=== PATIENT | female | born 1935 | race Caucasian/White ===

== ENCOUNTER 2016-07-06 17:55 | Inpatient (IN) ==
[2016-07-06 18:39] LABS: Basophils % 0.2 %; Hematocrit 40.5 % (35.3-44.9); Hemoglobin 14.2 g/dL (11.5-15.4); Immature Granulocytes % 0.5 % (0-4); Lymphocytes # 0.7 K/mcL (0.6-4.6); Lymphocytes % 4.3 %; Mean Corpuscular HGB Conc 35.1 g/dL (31.6-35.5); Mean Corpuscular Hemoglobin 32.7 pg (28.0-33.3); Mean Corpuscular Volume 93.3 fL (83.0-100.0); Mean Platelet Volume 9.8 fL (9.4-12.4); Monocytes # 1.8 K/mcL (0.0-1.3); Monocytes % 10.8 %; Neutrophils # 14.1 K/mcL (1.6-8.9); Platelet Count 384 K/mcL (140-400); Red Blood Count 4.34 M/mcL (3.82-4.97); Red Cell Distribution Width 12.5 % (11.5-14.5); Segmented Neutrophils % 84.2 %
[2016-07-06 18:47] LABS: Activated Partial Thrombo Time 21.6 Seconds (26.0-36.0)
[2016-07-06 18:55] LABS: Bilirubin,Urine Moderate (Negative); Blood,Urine Moderate (Negative); Clarity,Urine Cloudy (Clear); Color,Urine Yellow (Yellow); Glucose,Urine (UA) Normal (Normal); Ketones,Urine 40 mg/dL (Negative); Leukocyte Esterase,Urine Small (Negative); Nitrite,Urine Negative (Negative); Protein,Urine >=300 mg/dL (Neg-Trace); Specific Gravity,Urine 1.023 (1.010-1.025); Urobilinogen,Urine Normal (Normal)
[2016-07-06 18:55] LABS: Alanine Aminotransferase 12 Units/L (0-55); Albumin 3.6 g/dL (3.5-5.0); Alkaline Phosphatase 65 Units/L (38-126); Aspartate Amino Transferase 19 Units/L (5-34); BUN/Creatinine Ratio 23 (6-26); Bilirubin,Direct 0.3 mg/dL (0.0-0.5); Bilirubin,Indirect 0.5 mg/dL (0.0-1.2); Bilirubin,Total 0.8 mg/dL (0.2-1.2); Blood Urea Nitrogen 19 mg/dL (7-20); Calcium 9.8 mg/dL (8.6-10.8); Carbon Dioxide 27 mEq/L (19-29); Chloride 98 mEq/L (98-109); Globulin 3.7 g/dL (2.4-3.5); Glucose 102 mg/dL (70-99); Osmolality,Calculated 290 (280-300); Potassium 2.9 mEq/L (3.5-4.5); Sodium 139 mEq/L (136-145); Total Protein 7.3 g/dL (6.0-8.3); eGFR For African Americans > 60 (> 60); eGFR For Non-African Americans > 60 (> 60)
[2016-07-06 18:58] LABS: Ethanol < 10 mg/dL (0-10)
[2016-07-06 18:59] LABS: Bacteria,Urine Many per hpf (None-Few); Hyaline Casts,Urine Few per lpf (None-Few); Squamous Epithelial Cell,Urine Moderate per lpf (None-Few); WBC,Urine 50-100 per hpf (0-3)
--- NOTE | 2016-07-06 19:05 | Emergency Department Note ---
START Narrative - START START: I examined this patient and my medical decision-making was reviewed with the COURT OFFICER/PA/Advanced Practice Nurse/Resident Physician. I agree with the documented findings, disposition and treatment plan as described except to the extent set forth below.
--- NOTE | 2016-07-06 19:29 | Emergency Department Note ---
Disposition Clinical Impression: UTI (urinary tract infection) Qualifiers: Urinary tract infection type: acute cystitis Hematuria presence: without hematuria Qualified Code(s): N30.00 - Acute cystitis without hematuria Sepsis Qualifiers: Sepsis type: sepsis due to unspecified organism Qualified Code(s): A41.9 - Sepsis, unspecified organism Disposition: Admitted As Inpatient Condition: Good Time of Disposition: 20:12 General Adult HPI - General Chief complaint: ED Neuro Symptoms/Deficit Stated complaint: "drooling on self, slurred speech" Time Seen by Provider: 07/06/16 18:12 Source: family Limitations: no limitations Nursing Notes Reviewed: Yes Vital Signs Reviewed: Yes - History of Present Illness HPI Narrative: Three-day history of increased weakness today history of not eating as well as drooling and trouble swallowing. Recent admission and a psych unit for medication changes for depression. Pain Scale: 0 - Related Data Home Medications Medication Instructions Recorded Confirmed Elavil 11/26/14 11/26/14 Vitamin B-12 11/26/14 11/26/14 Vitamin C 11/26/14 11/26/14 Vitamin D 11/26/14 11/26/14 Xanax 11/26/14 11/26/14 Tylenol 10/23/15 Previous Rx's Medication Instructions Recorded Lidocaine Jelly 2% 30 ml MM TID PRN #1 jel..ml. 03/06/16 Alprazolam [Xanax 0.5 MG Tablet] 0.5 mg PO TID PRN #15 tablet 04/27/16 Alprazolam [Xanax 0.25 MG Tablet] 0.25 mg PO BID PRN #10 tablet 05/04/16 Ondansetron [Zofran] 8 mg PO Q8HR PRN #10 tablet 05/04/16 Promethazine [Phenergan] 25 mg PO Q8HR PRN #10 tablet 05/04/16 Ciprofloxacin HCl [Cipro] 500 mg PO BID #14 tablet 05/20/16 LORazepam [Ativan] 0.5 mg PO HS #5 tablet 05/23/16 Allergies Allergy/AdvReac Type Severity Reaction Status Date / Time Amoxicillin Allergy Rash Verified 05/03/16 09:00 Sulfa (Sulfonamide Allergy Rash Verified 05/03/16 09:00 Antibiotics) All systems ED: reviewed and negative except as stated. Constitutional: Denies: fever, chills ENT ED: Denies: throat pain, congestion, dysphagia (Patient states no pain on swallowing she just is not swallowing.) Cardiovascular: Denies: chest pain, palpitations Respiratory: Denies: cough, dyspnea, wheezes Gastrointestinal: Denies: abdominal pain, nausea, vomiting, diarrhea Genitourinary: Denies: urgency, dysuria, frequency, hematuria Musculoskeletal: Denies: back pain, neck pain Neurological: Denies: headache, weakness Psychiatric: Reports: depression Past Medical History - Past Medical History Medical history: Reports: dementia Surgical history: Reports: no surgical history Psychiatric history: Reports: anxiety, depression 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 Speaking minimally.) - Head Head exam: atraumatic, normocephalic - Eye Eye exam: Present: normal appearance, PERRL, EOMI. Absent: scleral icterus - ENT ENT exam: normal exam, normal oropharynx, mucous membranes moist - Neck Neck exam: Present: normal inspection, full ROM, trachea midline - Chest Chest inspection: Present: normal inspection, symmetric chest wall rise. Absent : tenderness, rash - Respiratory Respiratory exam: Present: normal lung sounds bilaterally. Absent: respiratory distress - Cardiovascular Cardiovascular exam: Present: regular rate, normal rhythm, normal heart sounds - Abdominal Exam Abdominal exam: Present: soft, Non-Tender, normal bowel sounds, Clements's sign, Rovsing's sign, tenderness at McBurney's Point. Absent: organomegaly - Extremities Exam Extremities exam: Present: normal inspection, full ROM, normal capillary refill. Absent: tenderness, pedal edema - Back Exam Back exam: Present: normal inspection, full ROM. Absent: tenderness - Neurological Exam Neurological exam: Present: alert, oriented X3. Absent: normal gait (Family states patient is not ambulating.) - Psychiatric Psychiatric exam: Present: flat affect - Skin Skin exam: Present: warm, dry, intact, normal color. Absent: rash, cyanosis Course Course Narrative: Female patient with a psych history was released from [facility] last week. She spent 16 days there for depression and had some medication changes. Family states that she returned home and was speaking appropriately and acting appropriately. She was eating and drinking well and ambulating throughout the house. They state over the past 3 days she has become almost nonverbal and has been drooling significantly. She is very weak and has not been eating for the past 2 days. Family expresses concern. They are concerned that she may have an ulcer in her mouth as she is drooling frugally. However patient states that it does not hurt to swallow she just is not swallowing. Patient is verbal and alert and oriented 3 however very quiet. She only answers certain questions. She appears distant while she is sitting there. Her lung sounds are clear her heart tones are normal and her abdomen is soft and nontender on exam. Patient is alert and oriented her affect is off. CT of patient's head was read as normal and chest x-ray was normal. Patient does have a UTI. We will begin treatment for this. She also has hypokalemia. We will give her potassium to treat this. She is having trouble with swallowing. We will order this IV. She will need to be further evaluated for swallowing disorders on admission. We will admit patient for her first criteria of meeting sepsis and a UTI as well as failure to thrive.. We will give patient a small fluid bolus. We will withhold the full 30 mL due to patient's fragility. - Consultations Consultation #1: Dr Reece accepted Pt in stable condition. Time: 20:07 Vital Signs Temperature 97.3 F L 07/06/16 17:59 Pulse Rate 109 07/06/16 17:59 Respiratory Rate 16 07/06/16 17:59 Blood Pressure 151/78 07/06/16 17:59 O2 Sat by Pulse Oximetry 94 07/06/16 17:59 Temperature 97.3 F L 07/06/16 17:59 Pulse Rate 109 07/06/16 17:59 Respiratory Rate 16 07/06/16 17:59 Blood Pressure 151/78 07/06/16 17:59 O2 Sat by Pulse Oximetry 94 07/06/16 17:59 Oxygen Delivery Oxygen Delivery Room Air Medical Decision Making - Medical Records Medical records reviewed: Yes I reviewed the patient's medical records. - Lab Data Lab results reviewed: Yes I reviewed the patient's lab results. Result diagrams: 07/06/16 18:26 07/06/16 18:26 Lab Results 07/06/16 07/06/16 07/06/16 Range/Units 18:26 18:26 18:26 WBC 16.7 H (4.3-11.1) K/mcL RBC 4.34 (3.82-4.97) M/mcL Hgb 14.2 (11.5-15.4) g/dL Hct 40.5 (35.3-44.9) % MCV 93.3 (83.0-100.0) fL MCH 32.7 (28.0-33.3) pg MCHC 35.1 (31.6-35.5) g/dL RDW 12.5 (11.5-14.5) % Plt Count 384 (140-400) K/mcL MPV 9.8 (9.4-12.4) fL Immature Gran % 0.5 (0-4) % Seg Neutrophils % 84.2 % Lymphocytes % 4.3 % Monocytes % 10.8 % Eosinophils % 0.0 % Basophils % 0.2 % Neutrophils # 14.1 H (1.6-8.9) K/mcL Lymphocytes # 0.7 (0.6-4.6) K/mcL Monocytes # 1.8 H (0.0-1.3) K/mcL Eosinophils # 0.0 (0.0-0.6) K/mcL Basophils # 0.0 (0.0-0.2) K/mcL PT 11.0 (9.4-12.1) Seconds INR 1.0 APTT 21.6 L (26.0-36.0) Seconds Sodium 139 (136-145) mEq/L Potassium 2.9 L (3.5-4.5) mEq/L Chloride 98 (98-109) mEq/L Carbon Dioxide 27 (19-29) mEq/L BUN 19 (7-20) mg/dL Creatinine 0.82 (0.57-1.11) mg/dL Est GFR ( Amer) > 60 (> 60) Est GFR (Non-Af Amer) > 60 (> 60) BUN/Creatinine Ratio 23 (6-26) Glucose 102 H (70-99) mg/dL Calculated Osmolality 290 (280-300) Calcium 9.8 (8.6-10.8) mg/dL Total Bilirubin 0.8 (0.2-1.2) mg/dL Direct Bilirubin 0.3 (0.0-0.5) mg/dL Indirect Bilirubin 0.5 (0.0-1.2) mg/dL AST 19 (5-34) Units/L ALT 12 (0-55) Units/L Alkaline Phosphatase 65 (38-126) Units/L Serum Total Protein 7.3 (6.0-8.3) g/dL Albumin 3.6 (3.5-5.0) g/dL Globulin 3.7 H (2.4-3.5) g/dL Albumin/Globulin Ratio 1.0 L (1.1-2.2) Urine Color (Yellow) Urine Clarity (Clear) Urine pH (5.0-8.0) pH Units Ur Specific [place] (1.010-1.025) Urine Protein (Neg-Trace) mg/dL Urine Glucose (UA) (Normal) mg/dL Urine Ketones (Negative) mg/dL Urine Blood (Negative) Urine Nitrite (Negative) Urine Bilirubin (Negative) Urine Urobilinogen (Normal) mg/dL Ur Leukocyte Esterase (Negative) Urine Microscopic RBC (0-3) per hpf Urine Microscopic WBC (0-3) per hpf Ur Squamous Epith Cells (None-Few) per lpf Urine Bacteria (None-Few) per hpf Hyaline Casts (None-Few) per lpf Ur Culture Indicated? (NO) Ethyl Alcohol < 10 (0-10) mg/dL 07/06/16 Range/Units 18:43 WBC (4.3-11.1) K/mcL RBC (3.82-4.97) M/mcL Hgb (11.5-15.4) g/dL Hct (35.3-44.9) % MCV (83.0-100.0) fL MCH (28.0-33.3) pg MCHC (31.6-35.5) g/dL RDW (11.5-14.5) % Plt Count (140-400) K/mcL MPV (9.4-12.4) fL Immature Gran % (0-4) % Seg Neutrophils % % Lymphocytes % % Monocytes % % Eosinophils % % Basophils % % Neutrophils # (1.6-8.9) K/mcL Lymphocytes # (0.6-4.6) K/mcL Monocytes # (0.0-1.3) K/mcL Eosinophils # (0.0-0.6) K/mcL Basophils # (0.0-0.2) K/mcL PT (9.4-12.1) Seconds INR APTT (26.0-36.0) Seconds Sodium (136-145) mEq/L Potassium (3.5-4.5) mEq/L Chloride (98-109) mEq/L Carbon Dioxide (19-29) mEq/L BUN (7-20) mg/dL Creatinine (0.57-1.11) mg/dL Est GFR ( Amer) (> 60) Est GFR (Non-Af Amer) (> 60) BUN/Creatinine Ratio (6-26) Glucose (70-99) mg/dL Calculated Osmolality (280-300) Calcium (8.6-10.8) mg/dL Total Bilirubin (0.2-1.2) mg/dL Direct Bilirubin (0.0-0.5) mg/dL Indirect Bilirubin (0.0-1.2) mg/dL AST (5-34) Units/L ALT (0-55) Units/L Alkaline Phosphatase (38-126) Units/L Serum Total Protein (6.0-8.3) g/dL Albumin (3.5-5.0) g/dL Globulin (2.4-3.5) g/dL Albumin/Globulin Ratio (1.1-2.2) Urine Color Yellow (Yellow) Urine Clarity Cloudy A (Clear) Urine pH 6.0 (5.0-8.0) pH Units Ur Specific [place] 1.023 (1.010-1.025) Urine Protein >=300 H (Neg-Trace) mg/dL Urine Glucose (UA) Normal (Normal) mg/dL Urine Ketones 40 H (Negative) mg/dL Urine Blood Moderate H (Negative) Urine Nitrite Negative (Negative) Urine Bilirubin Moderate H (Negative) Urine Urobilinogen Normal (Normal) mg/dL Ur Leukocyte Esterase Small H (Negative) Urine Microscopic RBC 5-15 H (0-3) per hpf Urine Microscopic WBC 50-100 H (0-3) per hpf Ur Squamous Epith Cells Moderate H (None-Few) per lpf Urine Bacteria Many H (None-Few) per hpf Hyaline Casts Few (None-Few) per lpf Ur Culture Indicated? YES A (NO) Ethyl Alcohol (0-10) mg/dL - Radiology Data Radiology results reviewed: Yes I reviewed the patient's radiology results. Chest X-Ray 07/06/16 18:28 IMPRESSION: 1. No active pulmonary disease. D/ / Joe Godoy MD / Joe Godoy MD Interpreting Provider: Joe Godoy MD Head CT 07/06/16 18:29 IMPRESSION: No acute intracranial abnormality. If acute cerebral infarct is a clinical concern, an MRI is a more sensitive study. D/ / Kelley Zuluaga Cha, MD / Kelley Zuluaga Cha, MD Interpreting Provider: Kelley Zuluaga Cha, MD - EKG Data EKG #1 EKG attestation: Yes I reviewed and interpreted this EKG. EKG results narrative: Sinus tachycardia rate 105. [place] interval is 148. QRS duration is 76. QT 344. QTC is 405. Sinus tachycardia. No signs of acute ischemia. No changes from previous EKG dated 06/05/2016
[2016-07-06] MEDS ORDERED: 0.9 % Sodium Chloride 1,000 ML IVC ONE (19:38)
[2016-07-06] MEDS ORDERED: Levofloxacin 750 MG/150 ML 750 MG/150 ML BAG IVPB ONE (19:38)
[2016-07-06] MEDS ORDERED: Magic Mouthwash 10 ML UD Cup PO STA (19:41)
[2016-07-06] MEDS ORDERED: 0.9 % Sodium Chloride 1,000 ML IVC SCH (20:00)
[2016-07-07] MEDS ORDERED: Naloxone 0.4 MG/ML INJ IVP PRN (05:31)
[2016-07-07] MEDS ORDERED: Ondansetron 4 MG/2 ML VIAL IVP PRN (05:31)
--- NOTE | 2016-07-07 05:44 | Internal Med History&Physical ---
Date of Encounter: 07/07/16 Time of Encounter: 05:00 Assessment and Plan (1) Dysphagia Current visit: Yes Status: Acute 1. Based upon history and exam, I suspect possible stroke. 2. Will initiate stroke work-up and consult Speech, PT, OT. 3. Strict npo until speech can evaluate. 4. MRI brain. 5. Rectal aspirin for now. 6. Follow glucose levels for 24 hours, longer if necessary. 7. Will order ECHO and Carotid Dopplers. Qualifiers: Dysphagia type: unspecified Qualified Code(s): R13.10 - Dysphagia, unspecified (2) Depression Current visit: Yes Status: Chronic 1. Need to verify new medication changes. 2. Unable to take po meds presently due to dysphagia. 3. Adjust meds as necessary and when able to take PO. Qualifiers: Depression Type: major depressive disorder Major depression recurrence: recurrent Active/Remission status: remission status unspecified Qualified Code(s): F33.9 - Major depressive disorder, recurrent, unspecified (3) UTI (urinary tract infection) Current visit: Yes Status: Acute 1. Culture urine. 2. Continue Rocephin and adjust antibiotics to urine sensitivities. Qualifiers: Urinary tract infection type: acute cystitis Hematuria presence: without hematuria Qualified Code(s): N30.00 - Acute cystitis without hematuria (4) DVT prophylaxis Current visit: Yes Status: Acute 1. Heparin SQ. Internal Medicine - H&P: HPI Chief complaint: slurred speech and difficulty swallowing Admitted From: Emergency Dept Plans for Post Hospital Care: Home History of present illness: Ms. Duckworth is a 80 year old female who presented to the ER [facility] with complaints of slurred speech and difficulty swallowing. She was found to have evidence of UTI and there was concern by the ER staff and family members that she was confused and disoriented. She therefore was admitted to the hospital service for UTI with altered mental status. Of note, she was recently discharged from [facility] psychiatric department for treatment of depression. She had multiple medications changes, but these cannot be verified at this time. Upon my assessment of the patient, she is alert, oriented 3, and coherent. She does have some slurred speech and difficulty communicating because of her dysphagia and dysphasia. However, I can understand everything she is communicating towards me. She states that her slurred speech and difficulty swallowing and eating started about 3-4 days ago. She has also developed some right-sided weakness she states. Regarding her medications, she has a history of dementia, but patient appears to the have good memory recall. She is able to recite her history to me and appears oriented to person, place, and situation. She denies any prior history of stroke. She does have a UTI on her laboratory analysis, but she does not appear to have confusion or disorientation upon my assessment. Past Med Surg Social Fam HX - Past Medical History Source: patient, old records reviewed Medical history: dementia Psychiatric history: anxiety, depression - Past Surgical History Surgical History: no surgical history - Social History Smoking Status: Never smoker Smokeless Tobacco Status: No Alcohol use: none Drug use: none Current living situation: Home, With Family Activity Level: Uses cane/walker Recent Out of Country Travel Within the Last 8 Weeks: No - Family History Daughter Adopted: No Living Status: Still Living Hx Family Cardiac Disorders: Yes (HTN) Hx Family Respiratory Disorders: No Hx Family Cancer: No Hx Family GI Disorders: No Hx Family Genitourinary Disorders: No Hx Family Endocrine Disorder: No Hx Family Musculoskeletal Disorders: No Hx Family Neuromuscular Disorders: No Hx Family Neurologic Disorders: No Hx Family HEENT Disorders: No Hx Family Autoimmune Disorders: No Hx Family Reproductive Disorders: No Hx Family Psychosocial Disorders: No Hx Family Medical Disorders: No Mother Living Status: Hx Family Neurologic Disorders: No Father Living Status: Hx Family Neurologic Disorders: No Internal Medicine - H&P: Meds Aripiprazole [Abilify] 2 mg PO HS 07/06/16 [History] Donepezil HCl [Aricept] 5 mg PO HS 07/06/16 [History] Duloxetine [Cymbalta] 30 mg PO BID 07/06/16 [History] Melatonin 3 mg PO HS 07/06/16 [History] Memantine [Namenda] 5 mg PO DAILY 07/06/16 [History] Allergies Amoxicillin Allergy (Verified 05/03/16 09:00) Rash Sulfa (Sulfonamide Antibiotics) Allergy (Verified 05/03/16 09:00) Rash - Constitutional Constitutional: no chills, no fever(s) - EENT Eyes: no blurry vision, no change in vision Ears: no ear pain, no tinnitus Nose, mouth and throat: dysphagia, no nasal congestion, no sinus pain, no sinus pressure - Cardiovascular Cardiovascular ROS IM: no chest pain, no dyspnea, no lightheadedness - Respiratory Respiratory: no cough, no dyspnea, no hemoptysis - Gastrointestinal Gastrointestinal: no abdominal pain, no diarrhea, no hematemesis, no hematochezia, no melena, no vomiting - Genitourinary Genitourinary: no dysuria, no flank pain - Musculoskeletal Musculoskeletal ROS IM: no arthralgias, no back pain - Integumentary Integumentary IM: no rash - Neurological Neurological ROS: abnormal speech, focal weakness (right arm weakness), no dizziness, no frequent falls, no headache(s) - Psychiatric Psychiatric: depression, no anxiety - Endocrine Endocrine IM: no polydipsia, no polyuria - Allergic/Immunologic Allergic/Immunologic: no wheezing, no GI upset with certain foods - Constitutional Vitals: Temp Pulse Resp BP Pulse Ox 98.7 F 100 23 183/94 97 07/07/16 04:45 07/07/16 04:45 07/07/16 04:45 07/07/16 04:45 07/07/16 04:45 General appearance: Present: cooperative, mild distress (anxious/nervous), A&O X 3, pleasant, answers questions appropriately Exam: alert and oriented x 3 - Head Head exam: Present: atraumatic, normal inspection - Expanded Head Exam Head exam expanded: Absent: abrasion, contusion, general tenderness - Eye Eye exam: Present: EOMI, normal appearance, PERRL. Absent: scleral icterus Pupils: Present: normal accommodation - ENT ENT exam: Present: mucous membranes dry, normal exam - Neck Neck exam general surgery: Present: full ROM, normal inspection. Absent: tenderness - Expanded Neck Exam Neck exam: Absent: carotid bruit - Respiratory Respiratory exam: Present: CTAB. Absent: rales, rhonchi, wheezes - Cardiovascular Cardiovascular exam: Present: RRR, +S1, +S2. Absent: diastolic murmur, JVD, systolic murmur - GI/Abdominal GI/Abdominal exam: Present: normal bowel sounds, soft. Absent: hepatomegaly, mass, splenomegaly - Extremities Exam Extremities exam: Present: warm. Absent: calf tenderness, joint swelling, pedal edema - Back Exam Back exam: Absent: CVA tenderness (L), CVA tenderness (R) - Neurological Exam Neurological exam: Present: alert, oriented X3 Additional comments: slurred speech; RUE weakness - Psychiatric Psychiatric exam: Present: anxious. Absent: depressed - Skin Skin exam: Present: dry, warm. Absent: rash Internal Med - H&P Results - Labs CBC & Chem 7: 07/06/16 18:26 07/06/16 18:26 - EKG Data -: EKG Interpreted by Myself EKG shows normal: sinus rhythm - Diagnostic Studies Chest x-ray Status: image reviewed by me (negative)
[2016-07-07] MEDS: *HR* Heparin 5,000 UNIT/ML VIAL SQ SCH ×2 (06:06→16:32)
[2016-07-07] MEDS: 0.9 % Sodium Chloride w KCl 20 MEQ/1,000 ML MLS IVC SCH ×2 (06:18→16:32)
[2016-07-07 06:24] LABS: Basophils % 0.2 %; Hematocrit 38.4 % (35.3-44.9); Hemoglobin 13.3 g/dL (11.5-15.4); Immature Granulocytes % 0.5 % (0-4); Lymphocytes # 0.7 K/mcL (0.6-4.6); Lymphocytes % 5.5 %; Mean Corpuscular HGB Conc 34.6 g/dL (31.6-35.5); Mean Corpuscular Hemoglobin 32.9 pg (28.0-33.3); Mean Platelet Volume 9.7 fL (9.4-12.4); Monocytes # 1.5 K/mcL (0.0-1.3); Monocytes % 11.6 %; Neutrophils # 10.9 K/mcL (1.6-8.9); Platelet Count 334 K/mcL (140-400); Red Blood Count 4.04 M/mcL (3.82-4.97); Red Cell Distribution Width 12.7 % (11.5-14.5); Segmented Neutrophils % 82.2 %
[2016-07-07 06:37] LABS: BUN/Creatinine Ratio 21 (6-26); Blood Urea Nitrogen 16 mg/dL (7-20); Carbon Dioxide 24 mEq/L (19-29); Chloride 101 mEq/L (98-109); Glucose 74 mg/dL (70-99); Osmolality,Calculated 290 (280-300); Sodium 140 mEq/L (136-145); eGFR For African Americans > 60 (> 60); eGFR For Non-African Americans > 60 (> 60)
[2016-07-07 06:38] LABS: Albumin 3.1 g/dL (3.5-5.0); Albumin/Globulin Ratio 0.9 (1.1-2.2); Alkaline Phosphatase 57 Units/L (38-126); Aspartate Amino Transferase 17 Units/L (5-34); Bilirubin,Total 0.7 mg/dL (0.2-1.2); Calcium 8.8 mg/dL (8.6-10.8); Chol/HDL Ratio 2.7 (0-4.9); Cholesterol 194 mg/dL (< 200); Globulin 3.3 g/dL (2.4-3.5); HDL Cholesterol 72 mg/dL (40-59); LDL Cholesterol,Calculated 102 mg/dL (0-99); Magnesium 1.4 mg/dL (1.6-2.6); Total Protein 6.4 g/dL (6.0-8.3); Triglycerides 99 mg/dL (< 150)
[2016-07-07 06:39] LABS: Alanine Aminotransferase 13 Units/L (0-55)
[2016-07-07 08:48] LABS: Amphetamine Screen,Urine Negative ng/mL (Cutoff=1000); Barbiturate Screen,Urine Negative ng/mL (Cutoff=200); Benzodiazepines Screen,Urine Negative ng/mL (Cutoff=200); Cannabinoid Screen,Urine Negative ng/mL (Cutoff = 50); Cocaine Screen,Urine Negative ng/mL (Cutoff= 300); Opiate Screen,Urine Negative ng/mL (Cutoff=300); Phencyclidine Screen,Urine Negative ng/mL (Cutoff=25)
--- NOTE | 2016-07-07 15:21 | Electrocardiograph Report ---
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
--- NOTE | 2016-07-07 15:26 | Electrocardiograph Report ---
[place] [id number] Test Date: 2016-07-07 Pat Name: Mayela Duckworth Department: 114 Room: 3B46 Gender: F Basketball Referee: CPB : 1935 Requested By: Jose Li Order Number: [id number] Reading MD: Sylvia Rodríguez Measurements Intervals [place] Rate: 95 P: 80 OR: 150 QRS: 29 QRSD: 78 T: 75 QT: 285 QTc: 338 Interpretive Statements SINUS RHYTHM NONSPECIFIC T-WAVE ABNORMALITY Electronically Signed On 07-07-2016 15:25:05 EDT by Sylvia Rodríguez
[2016-07-07] MEDS ORDERED: diazePAM 10 MG/2 ML SYRINGE IVP PRN (15:44)
--- NOTE | 2016-07-07 16:33 | Neurology - Consult Note ---
Date of Encounter: 07/07/16 Time of Encounter: 16:29 Assessment and Plan (1) Parkinsonism Current Visit: Yes Status: Acute This point time, my primary suspicion is perhaps we are dealing with parkinsonism due to the dopaminergic blockade as a result of the Abilify, and the promethazine. She does appear to have masked facies, she is drooling, she has paucity of movement. She has cogwheel rigidity. Less likely however also in the differential might include a neuroleptic malignant syndrome, however her white blood cell count was only modestly elevated, the ALT and AST were not elevated. I will check a CPK level. I also recommend a psychiatry to evaluate and rule out the possibility of catatonia. I will start her on carbidopa/ levodopa 25/100 one twice a day starting tonight. I will reassess her in the morning. This juncture I do not feel that MRI scan of the brain is is necessary. 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 Duckworth is a 80 year old female who is seen for neurologic consultation secondary to possibility of movement, hypophonia, sialorrhea. Apparently she has a history of depression and [facility] Family is not quite sure of all of the medications that she had been tried on but they do recall Abilify. She was also recently taking promethazine. She is known to have a urinary tract infection. She really does have paucity of speech but she is awake and apparently alert. She tries to talk however but cannot. But she does make eye contact, she tracks, she nods her head yes and no and follows simple commands. She is not encephalopathic at this time. CT scan of the head completed at the time of admission revealed no acute abnormalities. She did have a white blood cell count of 16, ALT and AST were not elevated. Past Med Surg Social Fam HX - Past Medical History Medical history: dementia Psychiatric history: anxiety, depression - Past Surgical History Surgical History: no surgical history - Social History Smoking Status: Never smoker Smokeless Tobacco Status: No Alcohol use: none Drug use: none - Family History Daughter Adopted: No Living Status: Still Living Hx Family Cardiac Disorders: Yes (HTN) Hx Family Respiratory Disorders: No Hx Family Cancer: No Hx Family GI Disorders: No Hx Family Genitourinary Disorders: No Hx Family Endocrine Disorder: No Hx Family Musculoskeletal Disorders: No Hx Family Neuromuscular Disorders: No Hx Family Neurologic Disorders: No Hx Family HEENT Disorders: No Hx Family Autoimmune Disorders: No Hx Family Reproductive Disorders: No Hx Family Psychosocial Disorders: No Hx Family Medical Disorders: No Mother Living Status: Hx Family Neurologic Disorders: No Father Living Status: Hx Family Neurologic Disorders: No Medications and Allergies ARIPiprazole [Abilify] 2 mg PO HS 07/06/16 [History] DULoxetine [Cymbalta] 30 mg PO BID 07/06/16 [History] Donepezil HCl [Aricept] 5 mg PO HS 07/06/16 [History] Melatonin 3 mg PO HS 07/06/16 [History] Memantine [Namenda] 5 mg PO DAILY 07/06/16 [History] Allergies Amoxicillin Allergy (Verified 05/03/16 09:00) Rash Sulfa (Sulfonamide Antibiotics) Allergy (Verified 05/03/16 09:00) Rash ROS unobtainable: due to mental status All Systems: A 10-system review of systems was performed and is negative for pertinent findings except as documented above in the HPI. Physical Examination - Vital Signs Vital Signs: Initial Vital Signs Temp Pulse Resp BP Pulse Ox 97.3 F L 109 16 151/78 94 07/06/16 17:59 07/06/16 17:59 07/06/16 17:59 07/06/16 17:59 07/06/16 17:59 - Exam Exam: For cerebral/mental status functions-she is awake she makes eye contact she seems to be alert, however she cannot speak. She does attempt to talk however cannot phonate well. She does make eye contact, she does follow simple commands , she does not her head yes or no appropriately. Cranial nerves-pupils are equal and reactive to light and accommodation, extraocular motility is intact, there is no facial asymmetry, soft palate elevates bilaterally upon phonation however her voice is very weak. Tongue is midline. Motor exam finds at least 4/5 strength of both upper extremities of the deltoids biceps and triceps. Chemical Pumper strength is full power symmetrically. She does have significant cogwheel rigidity of both upper extremities at the wrist. She is able to raise both legs off the bed to gravity, tibialis anterior strength is 5/5 symmetrically. Sensory exam finds light touch is globally intact. I am unable to get a very precise sensory exam due to her current condition of being unable to speak. Deep tendon reflexes are 2+ symmetrically in the biceps triceps brachial radialis patellar reflexes are 2 symmetrically Achilles reflexes are 1 symmetrically. No Babinski sign is identified. Results - Laboratory Findings CBC and BMP: 07/07/16 06:14 07/07/16 06:14 Abnormal lab findings: Abnormal lab results WBC 13.2 K/mcL (4.3-11.1) H 07/07/16 06:14 Neutrophils # 10.9 K/mcL (1.6-8.9) H 07/07/16 06:14 Monocytes # 1.5 K/mcL (0.0-1.3) H 07/07/16 06:14 APTT 21.6 Seconds (26.0-36.0) L 07/06/16 18:26 Potassium 3.0 mEq/L (3.5-4.5) L 07/07/16 06:14 POC Glucose 96 (58-89) H 07/06/16 18:09 Magnesium 1.4 mg/dL (1.6-2.6) L 07/07/16 06:14 Albumin 3.1 g/dL (3.5-5.0) L 07/07/16 06:14 Albumin/Globulin Ratio 0.9 (1.1-2.2) L 07/07/16 06:14 LDL Cholesterol, Calc 102 mg/dL (0-99) H 07/07/16 06:14 HDL Cholesterol 72 mg/dL (40-59) H 07/07/16 06:14 Urine Clarity Cloudy (Clear) A 07/06/16 18:43 Urine Protein >=300 mg/dL (Neg-Trace) H 07/06/16 18:43 Urine Ketones 40 mg/dL (Negative) H 07/06/16 18:43 Urine Blood Moderate (Negative) H 07/06/16 18:43 Urine Bilirubin Moderate (Negative) H 07/06/16 18:43 Ur Leukocyte Esterase Small (Negative) H 07/06/16 18:43 Urine Microscopic RBC 5-15 per hpf (0-3) H 07/06/16 18:43 Urine Microscopic WBC 50-100 per hpf (0-3) H 07/06/16 18:43 Ur Squamous Epith Cells Moderate per lpf (None-Few) H 07/06/16 18:43 Urine Bacteria Many per hpf (None-Few) H 07/06/16 18:43 Ur Culture Indicated? YES (NO) A 07/06/16 18:43 Consult Discharge Plan - Plan Referrals: Lori Cruz, DO [Primary Care Provider] -
[2016-07-07] MEDS: Carbidopa/Levodopa 25/100 TABLET PO SCH ×2 (18:55→21:17)
[2016-07-07] MEDS ORDERED: Dextrose Gel 15 GM PO PRN ×2 (21:44)
[2016-07-07] MEDS ORDERED: *HR* Dextrose 50 % in Water (Syg) 50 ML SYRINGE IVP PRN (21:44)
[2016-07-07] MEDS ORDERED: D5% in Water 1,000 ML IVC PRN (21:44)
[2016-07-08 00:49] LABS: Hemoglobin A1C 4.9 %
[2016-07-08] MEDS: *HR* Heparin 5,000 UNIT/ML VIAL SQ SCH ×2 (05:33→18:53)
[2016-07-08] MEDS: 0.9 % Sodium Chloride w KCl 20 MEQ/1,000 ML MLS IVC SCH ×2 (07:00→14:36)
[2016-07-08] MEDS: Carbidopa/Levodopa 25/100 TABLET PO SCH ×3 (10:04→21:24)
--- NOTE | 2016-07-08 10:17 | Neurology Progress Note ---
<Brody Blair - Last Filed: 07/08/16 10:11> Date of Encounter: 07/08/16 Time of Encounter: 09:30 Assessment and Plan (1) Parkinsonism Current Visit: Yes Status: Acute Creatinine kinase was 72. MRI was negative for any acute intracranial abnormality. Some improvement since yesterday specifically in her rigidity. She continues to have masked facies, drooling, and minimal movement. Her movements are slow to initiate. Continue with Carbidopa/Levodopa. 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 She nods when asked if she is feeling better than yesterday. She mostly remains non-verbal, but is able to repeat her first and last name. She is having poor oral intake. She denies any pain. Her cogwheel rigidity is somewhat improved today. Objective - Constitutional Vitals: Temp Pulse Resp BP Pulse Ox 97.6 F 94 16 159/80 100 07/08/16 07:23 07/08/16 07:23 07/08/16 07:23 07/08/16 07:23 07/08/16 07:23 - Neurological Exam Sensorimotor examination: Present: rigidity (cogwheel rigidity still present, but with minimal improvement since yesterday) Motor examination - right side: 4/5: deltoids, biceps, triceps, hip flexors, 5/5 : machine repairer maintenance, tibialis Anterior, quadriceps, toe extension (EHL), plantarflexion Motor examination - left side: 4/5: deltoids, biceps, triceps, hip flexors, 5/5 : machine repairer maintenance, quadriceps, tibialis Anterior, toe extension (EHL), plantarflexion Sensation intact: Present: intact Reflexes: Biceps: 2+, Triceps: 2+, Brachioradialis: 2+, Patella: 2+, Achilles: 1 + Mental Status Examination: Present: awake, alert (Able to repeat her name, but has poor overall speech. ), oriented to person, follows commands appropriately, makes eye contact, follows simple commands Cranial nerve examination: Present: PERRL, EOMI, no facial asymmetry is present , hearing is intact symmetrically, soft palate elevates bilaterally upon phonation, flexes SCM and trapezius muscles symmetrically with full power, tongue protrudes midline, no atrophy or facial fasiculations present Results - Laboratory Findings CBC and BMP: 07/07/16 06:14 07/07/16 06:14 Abnormal lab findings: Abnormal lab results WBC 13.2 K/mcL (4.3-11.1) H 07/07/16 06:14 Neutrophils # 10.9 K/mcL (1.6-8.9) H 07/07/16 06:14 Monocytes # 1.5 K/mcL (0.0-1.3) H 07/07/16 06:14 APTT 21.6 Seconds (26.0-36.0) L 07/06/16 18:26 Potassium 3.0 mEq/L (3.5-4.5) L 07/07/16 06:14 Magnesium 1.4 mg/dL (1.6-2.6) L 07/07/16 06:14 Albumin 3.1 g/dL (3.5-5.0) L 07/07/16 06:14 Albumin/Globulin Ratio 0.9 (1.1-2.2) L 07/07/16 06:14 LDL Cholesterol, Calc 102 mg/dL (0-99) H 07/07/16 06:14 HDL Cholesterol 72 mg/dL (40-59) H 07/07/16 06:14 Urine Clarity Cloudy (Clear) A 07/06/16 18:43 Urine Protein >=300 mg/dL (Neg-Trace) H 07/06/16 18:43 Urine Ketones 40 mg/dL (Negative) H 07/06/16 18:43 Urine Blood Moderate (Negative) H 07/06/16 18:43 Urine Bilirubin Moderate (Negative) H 07/06/16 18:43 Ur Leukocyte Esterase Small (Negative) H 07/06/16 18:43 Urine Microscopic RBC 5-15 per hpf (0-3) H 07/06/16 18:43 Urine Microscopic WBC 50-100 per hpf (0-3) H 07/06/16 18:43 Ur Squamous Epith Cells Moderate per lpf (None-Few) H 07/06/16 18:43 Urine Bacteria Many per hpf (None-Few) H 07/06/16 18:43 Ur Culture Indicated? YES (NO) A 07/06/16 18:43 Consult Discharge Plan - Plan Referrals: Lori Cruz, DO [Primary Care Provider] - <FelipeAndres Matthews - Last Filed: 07/08/16 16:56> Date of Encounter: 07/08/16 Time of Encounter: 16:53 Assessment and Plan (1) Parkinsonism Current Visit: Yes Status: Acute I continue with the assessment and plan as stated above. I will increase the carbidopa levodopa dosage to 4 times a day. I remain convinced that we are dealing with parkinsonism which is drug-induced, versus perhaps a combination of some other psychiatric condition. 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 The case was discussed with Dr. Blair. The patient still has paucity of movement masked facies and is minimally verbal. However she is awake and alert. She makes eye contact. She attempts to verbalize in the context of her verbalization is appropriate. She follows simple commands. Cogwheel rigidity remains present at the wrists bilaterally. Objective - Constitutional Vitals: Temp Pulse Resp BP Pulse Ox 98.0 F 93 18 169/82 100 07/08/16 15:52 07/08/16 15:52 07/08/16 15:52 07/08/16 15:52 07/08/16 15:52 - Neurological Exam Sensorimotor examination: Present: rigidity Results - Laboratory Findings CBC and BMP: 07/07/16 06:14 07/07/16 06:14 Abnormal lab findings: Abnormal lab results WBC 13.2 K/mcL (4.3-11.1) H 07/07/16 06:14 Neutrophils # 10.9 K/mcL (1.6-8.9) H 07/07/16 06:14 Monocytes # 1.5 K/mcL (0.0-1.3) H 07/07/16 06:14 APTT 21.6 Seconds (26.0-36.0) L 07/06/16 18:26 Potassium 3.0 mEq/L (3.5-4.5) L 07/07/16 06:14 Magnesium 1.4 mg/dL (1.6-2.6) L 07/07/16 06:14 Albumin 3.1 g/dL (3.5-5.0) L 07/07/16 06:14 Albumin/Globulin Ratio 0.9 (1.1-2.2) L 07/07/16 06:14 LDL Cholesterol, Calc 102 mg/dL (0-99) H 07/07/16 06:14 HDL Cholesterol 72 mg/dL (40-59) H 07/07/16 06:14 Urine Clarity Cloudy (Clear) A 07/06/16 18:43 Urine Protein >=300 mg/dL (Neg-Trace) H 07/06/16 18:43 Urine Ketones 40 mg/dL (Negative) H 07/06/16 18:43 Urine Blood Moderate (Negative) H 07/06/16 18:43 Urine Bilirubin Moderate (Negative) H 07/06/16 18:43 Ur Leukocyte Esterase Small (Negative) H 07/06/16 18:43 Urine Microscopic RBC 5-15 per hpf (0-3) H 07/06/16 18:43 Urine Microscopic WBC 50-100 per hpf (0-3) H 07/06/16 18:43 Ur Squamous Epith Cells Moderate per lpf (None-Few) H 07/06/16 18:43 Urine Bacteria Many per hpf (None-Few) H 07/06/16 18:43 Ur Culture Indicated? YES (NO) A 07/06/16 18:43
--- NOTE | 2016-07-08 10:51 | ECHO - Doppler Report ---
Echo with Saline Contrast Name: Mayela Duckworth Date of Study: 07/08/2016 Date: 1935 Ht: 62.0 in Medical Record#: [id number] Age: 80 Wt: 120.0 lb Gender: Female BSA: 1.54 Order #: [id number] Location: [facility] Room #: [id number] Reading Physician: Wei Sharma DO, [facility] Specialist: Jonathan Dimas RN Ordering Physician: Sunil Reece MD Primary Physician: Lori Cruz DO Indications: Cerebrovascular Accident Impressions: LVEF 60-65%. Normal LV chamber size, wall thickness and function. Mild left ventricular diastolic dysfunction. Normal right ventricular structure and function. No evidence of PFO with agitated saline contrast. Mild aortic regurgitation. Unable to estimate RVSP due to lack of TR jet. Left Ventricular Wall Motion: Rest Echo Findings All wall segments showed normal motion. Findings: Study Quality * Technically adequate exam. ECG Findings * Normal sinus rhythm. Left Ventricle * LVEF 60-65%. * Normal LV chamber size, wall thickness and function. * Mild left ventricular diastolic dysfunction. Right Ventricle * Normal right ventricular structure and function. Left Atrium * Normal left atrial size. Right Atrium * Normal right atrial size. Interatrial Septum * No evidence of PFO with agitated saline contrast. * Lipomatous interatrial septum. Aortic Valve * Trileaflet aortic valve. * Mild aortic regurgitation. * No aortic stenosis. Mitral Valve * Normal mitral valve structure and function. * No mitral regurgitation. * No mitral stenosis. Tricuspid Valve * Normal tricuspid valve structure and function. * No tricuspid regurgitation. * Unable to estimate RVSP due to lack of TR jet. Pulmonic Valve * Normal pulmonic valve structure and function. * No pulmonic regurgitation. Aorta * Normally sized aortic root. Pericardium * The pericardium appears normal. IVC * Normal IVC dimensions and inspiratory collapse. Pulmonary Artery * Normal visualized portions of the main pulmonary artery. History 05/20/2015 a Previous Echo was performed. Contrast: Agitated saline 20 ml. Measurements: BP: 169/ 75 2D Normal Values RVIDd: 3.20 cm <2.7 cm IVSd: 1.50 cm 0.6 - 1.0 cm LVIDd: 2.70 cm 3.7 - 5.6 cm LVPWd: 1.30 cm 0.6 - 1.1 cm LVIDs: 1.80 cm 1.5 - 3.6 cm LA: 3.00 cm 2.0 - 4.0cm %FS: 33.30 cm >25 % LVOT Diam: 1.70 cm LA volume: 17 Mitral Valve Peak E:.75 m/sec Peak A:.97 m/sec E/A Ratio:0.8 Peak E' Lat Ty:5.36 cm/s Peak E' Med Ty:6.04 cm/s E/E' Lat Ratio:13.9 E/E' Med Ratio:12.3 Updated by Wei Sharma DO, KASSANDRA, YUE LEVIN on 07/08/2016 10:46:09 AM electronically signed on 07/08/2016 10:46:37 AM with status of Final Wall Motion [place]: 1=Normal, 2=Hypokinesis, 3=Akinesis, 4=Dyskinesis, 5=Aneurysmal, 6=Hyperkinetic, X=Not Visualized (Blank)=Missing
--- NOTE | 2016-07-08 11:55 | Carotid Imaging Report ---
Carotid Duplex Patient Name:Mayela Duckworth Order Number:[id number] Procedure Date:07/08/2016 Date:8Age:80 yrs Gender:Female Lt BP:169 / 75 mmHg Rt.BP:160 / 82 mmHgHeart Rate: Location:[facility] Room #: [id number] Manufacturer'S Representative:Jonathan Dimas RN Referring MD:Sunil Reece MD lifestyle coordinator:DO Shakeel Castanon MD:Allen Blair MD , [facility] Risk Factors Yes/No Hypertension No Diabetes No Hypercholesterolemia No Smoker Previous No Hx of TIA Unknown Hx of CVA Unknown Previous Vascular Surgery Unknown Hx of CAD/PTCA No Impressions: Findings: Right mid ICA has a severe, 60-79% stenosis. Findings: Left mid ICA has a severe, 60-79% stenosis. Recommendations: Suggest clinical correlation and Follow up exam 6 months. Test completed on 07/08/2016 at 8:15:00 am. Findings Carotid Duplex: Right: The right proximal common carotid artery has a PSV of 76 cm/s and a EDV of 19 cm/s. The right mid common carotid artery has a PSV of 65 cm/s and a EDV of 15 cm/s. The right distal common carotid artery has a PSV of 58 cm/s and a EDV of 15 cm/s. The right bifurcation has a PSV of 71 cm/s and a EDV of 19 cm/s. The right proximal internal carotid artery has a PSV of 61 cm/s and a EDV of 12 cm/s. There is 80-99% stenosis in the right mid internal carotid artery with a PSV of 268 cm/s and a EDV of 74 cm/s. There is 60-79% stenosis in the right distal internal carotid artery with a PSV of 143 cm/s and a EDV of 39 cm/s. The right eca has a PSV of 79 cm/s and a EDV of 11 cm/s. The right vertebral artery has a PSV of 75 cm/s and a EDV of 21 cm/s. Left: The left proximal common carotid artery has a PSV of 73 cm/s and a EDV of 18 cm/s. The left mid common carotid artery has a PSV of 71 cm/s and a EDV of 18 cm/s. The left distal common carotid artery has a PSV of 77 cm/s and a EDV of 19 cm/s. There is nonstenotic plaque in the left bifurcation with a PSV of 82 cm/s and a EDV of 22 cm/s. There is smooth homogeneous plaque. The left proximal internal carotid artery has a PSV of 68 cm/s and a EDV of 18 cm/s. There is 60-79% stenosis in the left mid internal carotid artery with a PSV of 150 cm/s and a EDV of 29 cm/s. The left distal internal carotid artery has a PSV of 93 cm/s and a EDV of 31 cm/s. The left eca has a PSV of 157 cm/s and a EDV of 10 cm/s. The left vertebral artery has a PSV of 95 cm/s and a EDV of 24 cm/s. Prior Study: No prior study available for comparison. Carotid Results Right PSV EDV Assessment Proximal CCA 76 19 Normal Mid CCA 65 15 Normal Distal CCA 58 15 Normal Bifurcation 71 19 Normal Proximal ICA 61 12 Normal Mid ICA 268 74 80-99% stenosis Distal ICA 143 39 60-79% stenosis ECA 79 11 Normal Vertebral Artery 75 21 Normal Left PSV EDV Assessment Proximal CCA 73 18 Normal Mid CCA 71 18 Normal Distal CCA 77 19 Normal Bifurcation 82 22 Non Stenotic Plaque Proximal ICA 68 18 Normal Mid ICA 150 29 60-79% stenosis Distal ICA 93 31 Normal ECA 157 10 Normal Vertebral Artery 95 24 Normal Ratio's Right ICA/CCA Ratio: 4.12 ICA/CCA Values: 268/65 Left ICA/CCA Ratio: 2.11 ICA/CCA Values: 150/71 Updated by Allen Blair MD, FACS on 07/08/2016 11:49:18 AM Allen Blair MD electronically signed on 07/08/2016 11:49:52 AM with status of Final
--- NOTE | 2016-07-08 12:53 | Internal Med Progress Note ---
Date of Encounter: 07/08/16 Time of Encounter: 12:51 - Assessment and plan (1) Parkinsonism Current Visit: Yes Status: Acute Assessment and plan: Likely triggered by Abilify Avoid medications that could trigger extrapyramidal effects Discontinue Abilify permanently Continue Sinemet, followed by neurology MRI did not show any evidence of stroke Qualifiers: Parkinsonism type: secondary Parkinsonism Secondary Parkinsonism type: neuroleptic-induced Qualified Code(s): G21.11 - Neuroleptic induced parkinsonism (2) Sepsis Current Visit: Yes Status: Acute Assessment and plan: Sepsis secondary to urinary tract infection, Escherichia coli resistant to ciprofloxacin Continue Rocephin day 2 Patient has history of multiple UTIs, may benefit from continuous antibiotic prophylaxis upon discharge Qualifiers: Sepsis type: Escherichia coli Qualified Code(s): A41.51 - Sepsis due to Escherichia coli [E. coli] (3) UTI (urinary tract infection) Current Visit: Yes Status: Acute Qualifiers: Urinary tract infection type: acute cystitis Hematuria presence: without hematuria Qualified Code(s): N30.00 - Acute cystitis without hematuria (4) Dysphagia Current Visit: Yes Status: Acute Assessment and plan: Likely related to parkinsonism Qualifiers: Dysphagia type: unspecified Qualified Code(s): R13.10 - Dysphagia, unspecified (5) Depression Current Visit: Yes Status: Chronic Qualifiers: Depression Type: major depressive disorder Major depression recurrence: recurrent Active/Remission status: remission status unspecified Qualified Code(s): F33.9 - Major depressive disorder, recurrent, unspecified - Subjective Interval history: Continue to show signs of parkinsonism, muscle rigidity, is able to open her mouth a little better and swallow slightly better. Denies any pain, chest pain , shortness of breath, no dysuria. Has a still generalized weakness, no fevers , no diarrhea - Constitutional Vitals: Temp Pulse Resp BP Pulse Ox 97.3 F L 87 16 156/82 100 07/08/16 12:07 07/08/16 12:07 07/08/16 12:07 07/08/16 12:07 07/08/16 12:07 General appearance: Present: cooperative, mild distress (anxious/nervous), A&O X 3, pleasant, answers questions appropriately - Head Head exam: Present: atraumatic, normocephalic - Eye Eye exam: Present: PERRL, conjuntiva pink, sclera anicteric Pupils: Present: PERRL - Neck Neck exam general surgery: Present: supple, trachea midline. Absent: lymphadenopathy - Respiratory Respiratory exam: Present: CTAB. Absent: accessory muscle use, rales, rhonchi, wheezes - Cardiovascular Cardiovascular exam: Present: RRR, +S1, +S2. Absent: diastolic murmur, gallop, rubs, systolic murmur - GI/Abdominal GI/Abdominal exam: Present: normal bowel sounds, soft, no peritoneal signs. Absent: distended, tenderness - Extremities Exam Extremities exam: Present: warm, radial pulses palpable and symetrical. Absent : calf tenderness, cyanotic, pedal edema - Neurological Exam Neurological exam: Present: CN II-XII intact, oriented X3, no focal deficits. Absent: pronater drift, facial droop, speech deficit Additional comments: Generalized weakness, rigidity, lack of facial expression - Skin Skin exam: Present: dry, intact Internal Medicine: Result - Labs CBC & Chem 7: 07/07/16 06:14 07/07/16 06:14 - ABG Interpretation ABG results: PT/INR, D-dimer PT 11.0 Seconds (9.4-12.1) 07/06/16 18:26 - Impressions Impressions Brain MRI 07/07/16 05:54 IMPRESSION: No acute intracranial abnormality. Mild parenchymal volume loss. Moderate chronic microvascular disease. D/ / Edilberto Berger MD / Edilberto Berger MD Interpreting Provider: Edilberto Berger MD Consult Discharge Plan - Plan Referrals: Lori Cruz DO [Primary Care Provider] -
[2016-07-08] MEDS: Magnesium Oxide 400 MG TABLET PO SCH ×2 (14:18→21:23)
[2016-07-09] MEDS: 0.9 % Sodium Chloride w KCl 20 MEQ/1,000 ML MLS IVC SCH ×2 (02:49→15:42)
[2016-07-09 05:08] LABS: BUN/Creatinine Ratio 16 (6-26); Blood Urea Nitrogen 11 mg/dL (7-20); Carbon Dioxide 19 mEq/L (19-29); Chloride 112 mEq/L (98-109); Glucose 82 mg/dL (70-99); Magnesium 2.2 mg/dL (1.6-2.6); Osmolality,Calculated 298 (280-300); Sodium 145 mEq/L (136-145); eGFR For African Americans > 60 (> 60); eGFR For Non-African Americans > 60 (> 60)
[2016-07-09 05:41] LABS: Potassium 4.2 mEq/L (3.5-4.5)
[2016-07-09] MEDS: *HR* Heparin 5,000 UNIT/ML VIAL SQ SCH ×2 (06:11→17:49)
[2016-07-09] MEDS: Magnesium Oxide 400 MG TABLET PO SCH ×2 (07:58→20:52)
[2016-07-09] MEDS: Carbidopa/Levodopa 25/100 TABLET PO SCH ×4 (07:58→20:52)
--- NOTE | 2016-07-09 09:54 | Neurology Progress Note ---
<Brody Blair - Last Filed: 07/09/16 09:50> Date of Encounter: 07/09/16 Time of Encounter: 08:25 Assessment and Plan (1) Parkinsonism Current Visit: Yes Status: Acute MRI was negative for any acute intracranial abnormality. No changes since yesterday. The patient continues to have slow movements and cogwheel rigidity most notable at the wrists. Carbidopa/Levodopa was increased to QID yesterday. Differential remains drug induced parkinsonism vs. psychiatric manifestation. Recommendation for psych consult with history of severe depression. 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 She is able to state her name and answer yes or no to questions. She states she is feeling about the same as yesterday and has not had any changes. She nods her head to indicate that she is comfortable. Objective - Constitutional Vitals: Temp Pulse Resp BP Pulse Ox 98.3 F 97 18 152/77 100 07/09/16 07:15 07/09/16 07:15 07/09/16 03:57 07/09/16 07:15 07/09/16 07:15 Exam: The patient has masked facies, which remain unchanged. - Neurological Exam Sensorimotor examination: Present: rigidity (continued cogwheel rigidity noted) Motor Examination: Present: other (Movements are slow to initiate) Motor examination - right side: 4/5: deltoids, biceps, triceps, hip flexors, 5/5 : client support associate, tibialis Anterior, quadriceps, toe extension (EHL), plantarflexion Motor examination - left side: 4/5: deltoids, biceps, triceps, hip flexors, 5/5 : client support associate, quadriceps, tibialis Anterior, toe extension (EHL), plantarflexion Sensation intact: Present: intact Mental Status Examination: Present: awake, alert (Able to repeat her name, but has poor overall speech. ), oriented to person, follows commands appropriately, makes eye contact, follows simple commands Cranial nerve examination: Present: PERRL, EOMI, corneal reflexes brisk symmetrically, sensory to face intact, no facial asymmetry is present, hearing is intact symmetrically, soft palate elevates bilaterally upon phonation, flexes SCM and trapezius muscles symmetrically with full power, tongue protrudes midline, no atrophy or facial fasiculations present Results - Laboratory Findings CBC and BMP: 07/07/16 06:14 07/09/16 04:46 Abnormal lab findings: Abnormal lab results WBC 13.2 K/mcL (4.3-11.1) H 07/07/16 06:14 Neutrophils # 10.9 K/mcL (1.6-8.9) H 07/07/16 06:14 Monocytes # 1.5 K/mcL (0.0-1.3) H 07/07/16 06:14 APTT 21.6 Seconds (26.0-36.0) L 07/06/16 18:26 Chloride 112 mEq/L (98-109) H 07/09/16 04:46 POC Glucose 93 (58-89) H 07/09/16 07:21 Albumin 3.1 g/dL (3.5-5.0) L 07/07/16 06:14 Albumin/Globulin Ratio 0.9 (1.1-2.2) L 07/07/16 06:14 LDL Cholesterol, Calc 102 mg/dL (0-99) H 07/07/16 06:14 HDL Cholesterol 72 mg/dL (40-59) H 07/07/16 06:14 Urine Clarity Cloudy (Clear) A 07/06/16 18:43 Urine Protein >=300 mg/dL (Neg-Trace) H 07/06/16 18:43 Urine Ketones 40 mg/dL (Negative) H 07/06/16 18:43 Urine Blood Moderate (Negative) H 07/06/16 18:43 Urine Bilirubin Moderate (Negative) H 07/06/16 18:43 Ur Leukocyte Esterase Small (Negative) H 07/06/16 18:43 Urine Microscopic RBC 5-15 per hpf (0-3) H 07/06/16 18:43 Urine Microscopic WBC 50-100 per hpf (0-3) H 07/06/16 18:43 Ur Squamous Epith Cells Moderate per lpf (None-Few) H 07/06/16 18:43 Urine Bacteria Many per hpf (None-Few) H 07/06/16 18:43 Ur Culture Indicated? YES (NO) A 07/06/16 18:43 Consult Discharge Plan - Plan Referrals: Lori Cruz, DO [Primary Care Provider] - <Andres Wang Byron - Last Filed: 07/09/16 10:54> Date of Encounter: 07/09/16 Time of Encounter: 10:50 Assessment and Plan (1) Parkinsonism Current Visit: Yes Status: Acute No imaging studies have been unrevealing, I would recommend psychiatric evaluation to rule out psychogenic mutism. We will reevaluate her your request. I will discontinue the carbidopa levodopa. 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 Case was discussed with Dr. Blair, as he mentioned above. I am increasingly suspicious of psychiatric factors contributing here. Her mental status is unimpaired, however she cannot speak, but has free movement of the extremities. The lack of organic findings here along with the fairly sudden onset of this syndrome arouse suspicions for a psychogenic etiologies. The carbidopa levodopa does not seem to be making much of a difference. Certainly it is not helping her speech. She can open her mouth, she has a normal gag reflex. The content of her language is intact however her voice is very hypophonic. Objective - Constitutional Vitals: Temp Pulse Resp BP Pulse Ox 98.3 F 97 18 152/77 100 07/09/16 07:15 07/09/16 07:15 07/09/16 03:57 07/09/16 07:15 07/09/16 07:15 - Neurological Exam Sensorimotor examination: Present: rigidity Results - Laboratory Findings CBC and BMP: 07/07/16 06:14 07/09/16 04:46 Abnormal lab findings: Abnormal lab results WBC 13.2 K/mcL (4.3-11.1) H 07/07/16 06:14 Neutrophils # 10.9 K/mcL (1.6-8.9) H 07/07/16 06:14 Monocytes # 1.5 K/mcL (0.0-1.3) H 07/07/16 06:14 APTT 21.6 Seconds (26.0-36.0) L 07/06/16 18:26 Chloride 112 mEq/L (98-109) H 07/09/16 04:46 POC Glucose 93 (58-89) H 07/09/16 07:21 Albumin 3.1 g/dL (3.5-5.0) L 07/07/16 06:14 Albumin/Globulin Ratio 0.9 (1.1-2.2) L 07/07/16 06:14 LDL Cholesterol, Calc 102 mg/dL (0-99) H 07/07/16 06:14 HDL Cholesterol 72 mg/dL (40-59) H 07/07/16 06:14 Urine Clarity Cloudy (Clear) A 07/06/16 18:43 Urine Protein >=300 mg/dL (Neg-Trace) H 07/06/16 18:43 Urine Ketones 40 mg/dL (Negative) H 07/06/16 18:43 Urine Blood Moderate (Negative) H 07/06/16 18:43 Urine Bilirubin Moderate (Negative) H 07/06/16 18:43 Ur Leukocyte Esterase Small (Negative) H 07/06/16 18:43 Urine Microscopic RBC 5-15 per hpf (0-3) H 07/06/16 18:43 Urine Microscopic WBC 50-100 per hpf (0-3) H 07/06/16 18:43 Ur Squamous Epith Cells Moderate per lpf (None-Few) H 07/06/16 18:43 Urine Bacteria Many per hpf (None-Few) H 07/06/16 18:43 Ur Culture Indicated? YES (NO) A 07/06/16 18:43
--- NOTE | 2016-07-09 16:02 | Internal Med Progress Note ---
Date of Encounter: 07/09/16 Time of Encounter: 15:59 - Assessment and plan (1) Parkinsonism Current Visit: Yes Status: Acute Assessment and plan: Likely triggered by Abilify Avoid medications that could trigger extrapyramidal effects Discontinued Abilify permanently Continue Sinemet, followed by neurology MRI did not show any evidence of stroke Qualifiers: Parkinsonism type: secondary Parkinsonism Secondary Parkinsonism type: neuroleptic-induced Qualified Code(s): G21.11 - Neuroleptic induced parkinsonism (2) Sepsis Current Visit: Yes Status: Acute Assessment and plan: Sepsis secondary to urinary tract infection, Escherichia coli resistant to ciprofloxacin Continue Rocephin day 3 Patient has history of multiple UTIs, may benefit from continuous antibiotic prophylaxis upon discharge Qualifiers: Sepsis type: Escherichia coli Qualified Code(s): A41.51 - Sepsis due to Escherichia coli [E. coli] (3) UTI (urinary tract infection) Current Visit: Yes Status: Acute Qualifiers: Urinary tract infection type: acute cystitis Hematuria presence: without hematuria Qualified Code(s): N30.00 - Acute cystitis without hematuria (4) Dysphagia Current Visit: Yes Status: Acute Assessment and plan: Likely related to parkinsonism Qualifiers: Dysphagia type: unspecified Qualified Code(s): R13.10 - Dysphagia, unspecified (5) Depression Current Visit: Yes Status: Chronic Assessment and plan: catatonic? call psychiatry consult Qualifiers: Depression Type: major depressive disorder Major depression recurrence: recurrent Active/Remission status: remission status unspecified Qualified Code(s): F33.9 - Major depressive disorder, recurrent, unspecified - Subjective Interval history: Not improving too much although family says that she looks better. Continue to show signs of parkinsonism, muscle rigidity, is able to open her mouth a little better and swallow slightly better. Denies any pain, chest pain , shortness of breath, no dysuria. Has a still generalized weakness, no fevers , no diarrhea - Constitutional Vitals: Temp Pulse Resp BP Pulse Ox 97.3 F L 99 26 167/74 100 07/09/16 15:23 07/09/16 15:23 07/09/16 15:23 07/09/16 15:23 07/09/16 15:23 General appearance: Present: cooperative, mild distress (anxious/nervous), A&O X 3, pleasant, answers questions appropriately - Head Head exam: Present: atraumatic, normocephalic - Eye Eye exam: Present: PERRL, conjuntiva pink, sclera anicteric Pupils: Present: PERRL - Neck Neck exam general surgery: Present: supple, trachea midline. Absent: lymphadenopathy - Respiratory Respiratory exam: Present: CTAB. Absent: accessory muscle use, rales, rhonchi, wheezes - Cardiovascular Cardiovascular exam: Present: RRR, +S1, +S2. Absent: diastolic murmur, gallop, rubs, systolic murmur - GI/Abdominal GI/Abdominal exam: Present: normal bowel sounds, soft, no peritoneal signs. Absent: distended, tenderness - Extremities Exam Extremities exam: Present: warm, radial pulses palpable and symetrical. Absent : calf tenderness, cyanotic, pedal edema - Neurological Exam Neurological exam: Present: CN II-XII intact, oriented X3, no focal deficits. Absent: pronater drift, facial droop, speech deficit Additional comments: persistent rigidity, expressive aphasia - Skin Skin exam: Present: dry, intact Internal Medicine: Result - Labs CBC & Chem 7: 07/07/16 06:14 07/09/16 04:46 Labs: BMP 07/09/16 04:46 Sodium 145 Potassium 4.2 D Chloride 112 H Carbon Dioxide 19 BUN 11 Creatinine 0.67 Glucose 82 Calcium 9.0 - ABG Interpretation ABG results: PT/INR, D-dimer PT 11.0 Seconds (9.4-12.1) 07/06/16 18:26 - Impressions Impressions Videofluoroscopic Swallow 07/09/16 08:10 IMPRESSION: Significant residual in the vallecular following multiple swallows. Penetration on nectar consistency of barium. Negative for aspiration. Please see separate speech pathology report for full discussion of findings and recommendations. D/ / Pete Raygoza MD / Pete Raygoza MD Interpreting Provider: Pete Raygoza MD Consult Discharge Plan - Plan Referrals: Lori Cruz DO [Primary Care Provider] -
[2016-07-10] MEDS: 0.9 % Sodium Chloride w KCl 20 MEQ/1,000 ML MLS IVC SCH ×4 (02:11→22:57)
--- NOTE | 2016-07-10 09:46 | Internal Med Progress Note ---
Date of Encounter: 07/10/16 Time of Encounter: 09:44 - Assessment and plan (1) Parkinsonism Current Visit: Yes Status: Acute Assessment and plan: thought to be triggered by Abilify COnsider other etiologies /myopathies Avoid medications that could trigger extrapyramidal effects Discontinued Abilify permanently Continue Sinemet, followed by neurology MRI did not show any evidence of stroke Ach Ab and MUSK antibodies not reported yet Qualifiers: Parkinsonism type: secondary Parkinsonism Secondary Parkinsonism type: neuroleptic-induced Qualified Code(s): G21.11 - Neuroleptic induced parkinsonism (2) Sepsis Current Visit: Yes Status: Acute Assessment and plan: Sepsis secondary to urinary tract infection, Escherichia coli resistant to ciprofloxacin Continue Rocephin day 4 Patient has history of multiple UTIs, may benefit from continuous antibiotic prophylaxis upon discharge Qualifiers: Sepsis type: Escherichia coli Qualified Code(s): A41.51 - Sepsis due to Escherichia coli [E. coli] (3) UTI (urinary tract infection) Current Visit: Yes Status: Acute Qualifiers: Urinary tract infection type: acute cystitis Hematuria presence: without hematuria Qualified Code(s): N30.00 - Acute cystitis without hematuria (4) Dysphagia Current Visit: Yes Status: Acute Assessment and plan: Likely related to parkinsonism Qualifiers: Dysphagia type: unspecified Qualified Code(s): R13.10 - Dysphagia, unspecified (5) Depression Current Visit: Yes Status: Chronic Assessment and plan: catatonic? called a psychiatry consult Qualifiers: Depression Type: major depressive disorder Major depression recurrence: recurrent Active/Remission status: remission status unspecified Qualified Code(s): F33.9 - Major depressive disorder, recurrent, unspecified - Subjective Interval history: Not improving Continue to show signs of parkinsonism, muscle rigidity, is able to open her mouth , but has swallowing difficulties. Denies any pain, chest pain, shortness of breath, no dysuria. Has a still generalized weakness, no fevers, no diarrhea - Constitutional Vitals: Temp Pulse Resp BP Pulse Ox 97.7 F 97 16 167/107 100 07/10/16 07:00 07/10/16 07:00 07/10/16 07:00 07/10/16 07:00 07/10/16 07:00 General appearance: Present: cooperative, mild distress (anxious/nervous), A&O X 3, pleasant, answers questions appropriately - Head Head exam: Present: atraumatic, normocephalic - Eye Eye exam: Present: PERRL, conjuntiva pink, sclera anicteric Pupils: Present: PERRL - Neck Neck exam general surgery: Present: supple, trachea midline. Absent: lymphadenopathy - Respiratory Respiratory exam: Present: CTAB. Absent: accessory muscle use, rales, rhonchi, wheezes - Cardiovascular Cardiovascular exam: Present: RRR, +S1, +S2. Absent: diastolic murmur, gallop, rubs, systolic murmur - GI/Abdominal GI/Abdominal exam: Present: normal bowel sounds, soft, no peritoneal signs. Absent: distended, tenderness - Extremities Exam Extremities exam: Present: warm, radial pulses palpable and symetrical. Absent : calf tenderness, cyanotic, pedal edema - Neurological Exam Neurological exam: Present: CN II-XII intact, oriented X3. Absent: no focal deficits, pronater drift, facial droop, speech deficit Additional comments: severe generalized weakness, rigidity on upper extremities - Skin Skin exam: Present: dry, intact Internal Medicine: Result - Labs CBC & Chem 7: 07/07/16 06:14 07/09/16 04:46 - ABG Interpretation ABG results: PT/INR, D-dimer PT 11.0 Seconds (9.4-12.1) 07/06/16 18:26 - Impressions Impressions Videofluoroscopic Swallow 07/09/16 08:10 IMPRESSION: Significant residual in the vallecular following multiple swallows. Penetration on nectar consistency of barium. Negative for aspiration. Please see separate speech pathology report for full discussion of findings and recommendations. D/ / Pete Raygoza MD / Pete Raygoza MD Interpreting Provider: Pete Raygoza MD Consult Discharge Plan - Plan Referrals: Lori Cruz DO [Primary Care Provider] -
[2016-07-10] MEDS: *HR* Heparin 5,000 UNIT/ML VIAL SQ SCH ×2 (10:56→17:21)
[2016-07-10] MEDS: *HR* LORazepam 2 MG/ML VIAL IVP SCH ×3 (11:13→20:18)
[2016-07-10] MEDS: Magnesium Oxide 400 MG TABLET PO SCH ×2 (11:13→20:18)
[2016-07-10] MEDS: Carbidopa/Levodopa 25/100 TABLET PO SCH ×4 (11:13→20:18)
--- NOTE | 2016-07-10 11:28 | Consult Note ---
Date of Encounter: 07/10/16 Time of Encounter: 11:15 Assessment & Recommendation (1) Depression Current visit: Yes Status: Chronic Assessment & Recommendation: Unknown what is causing current symptoms. Catatonia is a possibility but her presentation is rather unique and not enough is known about her history. Would recommend obtaining records from most recent mental health hospitalization so that we can learn more. Since client is nonverbal and knows so little of her history it would be best to rely on medical records at this point. Would like to know how she presented for last hospitalization, whether they documented a history of catatonia, and what medication changes were made. In the meantime can try low dose Ativan to see if she responds. Recommend 0.5-1mg TID. If no improvement would not continue beyond a day or two as benzos might worsen her clinical picture if catatonia is not the source. Qualifiers: Depression Type: major depressive disorder Major depression recurrence: recurrent Active/Remission status: remission status unspecified Qualified Code(s): F33.9 - Major depressive disorder, recurrent, unspecified History of Present Illness Requesting Physician: Jose Li Reason for consult: catatonia History of present illness: Ms. Duckworth is a 80 year old female who was admitted secondary to signs of a stroke-nonverbal, drooling, etc. However, CT and MRI have been negative for stroke. Seen by Internal Med and Neurology with no clear answers as to why she is presenting this way. Psychiatry consulted to r/o the possibility of severe depression with catatonia. Ms. Duckworth did not communicate much with this production underwriter. She followed basic commands like squeeze my fingers and wiggle your toes. However, she did not verbalize anything. She would shake her head yes or no to questions but her responses were not always accurate so she is considered unreliable at this point. Her was present but he was unable to provide much information. It is this production underwriter's understanding that Ms. Duckworth was psychiatrically hospitalized recently at [facility] but her could not say what that admission was for. Apparently med changes were made during that hospitalization but without records it is hard to know what was done. Abilify is thought to have been a new medication but Neurology recommended this be stopped secondary to a possible dopaminergic blockade. Currently she is not on any psychotropics as the etiology of her symptoms is unknown. Catatonia is a possibility although with everything else she has going on it is hard to say for sure. Records indicate the presence of a UTI which might be a contributing factor. At this point the safest option would be to get records from her mental health hospitalization to find out exactly why she was inpatient and what exactly was done. Her denies a history of catatonia but the hospital records may be more reliable. Will recommend trying low dose Ativan to see if she improves. However, if there is no improvement would recommend holding off as benzos could worsen her clinical picture if catatonia is not the source of her problems. CC: Jose Li Past Med Surg Social Fam HX - Past Medical History Medical history: dementia - Past Psychiatric History Psychiatric history: Reports: depression, previous psychiatric hospitalization Past psychiatric history details: psych history mostly unknown at this point. will await records from recent hospitalization. aware she took meds for depression but could not elaborate beyond that. - Past Surgical History Surgical History: no surgical history - Social History Smoking Status: Never smoker Smokeless Tobacco Status: No Alcohol use: none Drug use: none - Family History Daughter Adopted: No Living Status: Still Living Hx Family Cardiac Disorders: Yes (HTN) Hx Family Respiratory Disorders: No Hx Family Cancer: No Hx Family GI Disorders: No Hx Family Genitourinary Disorders: No Hx Family Endocrine Disorder: No Hx Family Musculoskeletal Disorders: No Hx Family Neuromuscular Disorders: No Hx Family Neurologic Disorders: No Hx Family HEENT Disorders: No Hx Family Autoimmune Disorders: No Hx Family Reproductive Disorders: No Hx Family Psychosocial Disorders: No Hx Family Medical Disorders: No Mother Living Status: Hx Family Neurologic Disorders: No Father Living Status: Hx Family Neurologic Disorders: No Medications & Allergies ARIPiprazole [Abilify] 2 mg PO HS 07/06/16 [History] DULoxetine [Cymbalta] 30 mg PO BID 07/06/16 [History] Donepezil HCl [Aricept] 5 mg PO HS 07/06/16 [History] Melatonin 3 mg PO HS 07/06/16 [History] Memantine [Namenda] 5 mg PO DAILY 07/06/16 [History] Allergies Amoxicillin Allergy (Verified 05/03/16 09:00) Rash Sulfa (Sulfonamide Antibiotics) Allergy (Verified 05/03/16 09:00) [facility] Adverse Reaction (Verified 07/08/16 12:56) Cramping of the Muscles Review of Systems Constitutional: Reports: weakness. Denies: fever, chills, weight change Eyes: Denies: eye pain, vision change Ears, Nose, Throat: Reports: dysphagia. Denies: ear pain, throat pain, dental pain, hearing loss, congestion Cardiovascular: Denies: chest pain, palpitations, dyspnea on exertion Respiratory: Denies: cough, dyspnea, wheezes Gastrointestinal: Denies: abdominal pain, nausea, vomiting, diarrhea, constipation Genitourinary male: Denies: urgency, dysuria, frequency, genital lesions Genitourinary female: Denies: urgency, dysuria, frequency, abnormal menses, dyspareunia Musculoskeletal: Denies: joint swelling, joint pain Integumentary: Denies: rash, lesions, pruritus Neurological: Reports: weakness, confusion. Denies: headache, numbness, memory loss Endocrine: Denies: fatigue, heat or cold intolerance Hematologic/Lymphatic: Denies: easy bruising, lymphadenopathy Allergic/Immunologic: Denies: urticaria, itchy eyes Mental Status Exam Patient orientation: Yes Other Level of alertness: Follows commands Patient appearance: Appropriate Behavior: other Psychomotor activity: Catatonic Eye contact: Maintains Eye Contact Mood description: Depressed Affect description: flat Speech pattern: Non-verbal Speech volume: No speech Thought process: Slowed Thinking Thought content: Yes Poverty of Content Perceptual disturbances: No Auditory hallucinations, No Visual hallucinations Attention span: Capable of Focused Attention Memory description: Immediate Impaired, Recent Impaired, Remote Impaired Patient reliability: Not Reliable Historian Intelligence estimate: Average Judgment: Poor Insight: Minimal Results - Vital Signs Vital signs: Temp Pulse Resp BP Pulse Ox 97.9 F 67 17 167/99 96 07/10/16 10:55 07/10/16 10:55 07/10/16 10:55 07/10/16 10:55 07/10/16 10:55 - Labs Labs: Laboratory Last Values WBC 13.2 K/mcL (4.3-11.1) H 07/07/16 06:14 RBC 4.04 M/mcL (3.82-4.97) 07/07/16 06:14 Hgb 13.3 g/dL (11.5-15.4) 07/07/16 06:14 Hct 38.4 % (35.3-44.9) 07/07/16 06:14 MCV 95.0 fL (83.0-100.0) 07/07/16 06:14 MCH 32.9 pg (28.0-33.3) 07/07/16 06:14 MCHC 34.6 g/dL (31.6-35.5) 07/07/16 06:14 RDW 12.7 % (11.5-14.5) 07/07/16 06:14 Plt Count 334 K/mcL (140-400) 07/07/16 06:14 MPV 9.7 fL (9.4-12.4) 07/07/16 06:14 Immature Gran % 0.5 % (0-4) 07/07/16 06:14 Seg Neutrophils % 82.2 % 07/07/16 06:14 Lymphocytes % 5.5 % 07/07/16 06:14 Monocytes % 11.6 % 07/07/16 06:14 Eosinophils % 0.0 % 07/07/16 06:14 Basophils % 0.2 % 07/07/16 06:14 Neutrophils # 10.9 K/mcL (1.6-8.9) H 07/07/16 06:14 Lymphocytes # 0.7 K/mcL (0.6-4.6) 07/07/16 06:14 Monocytes # 1.5 K/mcL (0.0-1.3) H 07/07/16 06:14 Eosinophils # 0.0 K/mcL (0.0-0.6) 07/07/16 06:14 Basophils # 0.0 K/mcL (0.0-0.2) 07/07/16 06:14 Immature Plt Fraction 4.0 % (1.1-6.1) 07/07/16 06:14 PT 11.0 Seconds (9.4-12.1) 07/06/16 18:26 INR 1.0 07/06/16 18:26 APTT 21.6 Seconds (26.0-36.0) L 07/06/16 18:26 Sodium 145 mEq/L (136-145) 07/09/16 04:46 Potassium 4.2 mEq/L (3.5-4.5) D 07/09/16 04:46 Chloride 112 mEq/L (98-109) H 07/09/16 04:46 Carbon Dioxide 19 mEq/L (19-29) 07/09/16 04:46 BUN 11 mg/dL (7-20) 07/09/16 04:46 Creatinine 0.67 mg/dL (0.57-1.11) 07/09/16 04:46 Est GFR ( Amer) > 60 (> 60) 07/09/16 04:46 Est GFR (Non-Af Amer) > 60 (> 60) 07/09/16 04:46 BUN/Creatinine Ratio 16 (6-26) 07/09/16 04:46 Glucose 82 mg/dL (70-99) 07/09/16 04:46 POC Glucose 92 (58-89) H 07/09/16 11:24 Est Mean Plasma Glucose 94 mg/dl 07/07/16 06:14 Hemoglobin A1c 4.9 % (-5.6) 07/07/16 06:14 Calculated Osmolality 298 (280-300) 07/09/16 04:46 Lactic Acid 1.1 mmol/L (0.5-2.2) 07/06/16 19:59 Calcium 9.0 mg/dL (8.6-10.8) 07/09/16 04:46 Magnesium 2.2 mg/dL (1.6-2.6) 07/09/16 04:46 Total Bilirubin 0.7 mg/dL (0.2-1.2) 07/07/16 06:14 Direct Bilirubin 0.3 mg/dL (0.0-0.5) 07/06/16 18:26 Indirect Bilirubin 0.5 mg/dL (0.0-1.2) 07/06/16 18:26 AST 17 Units/L (5-34) 07/07/16 06:14 ALT 13 Units/L (0-55) 07/07/16 06:14 Alkaline Phosphatase 57 Units/L (38-126) 07/07/16 06:14 Creatine Kinase 72 Units/L (29-168) 07/07/16 16:52 Serum Total Protein 6.4 g/dL (6.0-8.3) 07/07/16 06:14 Albumin 3.1 g/dL (3.5-5.0) L 07/07/16 06:14 Globulin 3.3 g/dL (2.4-3.5) 07/07/16 06:14 Albumin/Globulin Ratio 0.9 (1.1-2.2) L 07/07/16 06:14 Triglycerides 99 mg/dL (< 150) 07/07/16 06:14 Cholesterol 194 mg/dL (< 200) 07/07/16 06:14 LDL Cholesterol, Calc 102 mg/dL (0-99) H 07/07/16 06:14 VLDL Cholesterol, Calc 20 mg/dL (< 31) 07/07/16 06:14 HDL Cholesterol 72 mg/dL (40-59) H 07/07/16 06:14 Cholesterol/HDL Ratio 2.7 (0-4.9) 07/07/16 06:14 Urine Color Yellow (Yellow) 07/06/16 18:43 Urine Clarity Cloudy (Clear) A 07/06/16 18:43 Urine pH 6.0 pH Units (5.0-8.0) 07/06/16 18:43 Ur Specific [place] 1.023 (1.010-1.025) 07/06/16 18:43 Urine Protein >=300 mg/dL (Neg-Trace) H 07/06/16 18:43 Urine Glucose (UA) Normal mg/dL (Normal) 07/06/16 18:43 Urine Ketones 40 mg/dL (Negative) H 07/06/16 18:43 Urine Blood Moderate (Negative) H 07/06/16 18:43 Urine Nitrite Negative (Negative) 07/06/16 18:43 Urine Bilirubin Moderate (Negative) H 07/06/16 18:43 Urine Urobilinogen Normal mg/dL (Normal) 07/06/16 18:43 Ur Leukocyte Esterase Small (Negative) H 07/06/16 18:43 Urine Microscopic RBC 5-15 per hpf (0-3) H 07/06/16 18:43 Urine Microscopic WBC 50-100 per hpf (0-3) H 07/06/16 18:43 Ur Squamous Epith Cells Moderate per lpf (None-Few) H 07/06/16 18:43 Urine Bacteria Many per hpf (None-Few) H 07/06/16 18:43 Hyaline Casts Few per lpf (None-Few) 07/06/16 18:43 Ur Culture Indicated? YES (NO) A 07/06/16 18:43 Urine Opiates Screen Negative ng/mL (Gxvcbj=866) 07/06/16 18:43 Ur Barbiturates Screen Negative ng/mL ([place]=196) 07/06/16 18:43 Ur Phencyclidine Scrn Negative ng/mL (Cutoff=25) 07/06/16 18:43 Ur Amphetamines Screen Negative ng/mL (Hxpqwt=7588) 07/06/16 18:43 U Benzodiazepines Scrn Negative ng/mL (Abwyqe=272) 07/06/16 18:43 Urine Cocaine Screen Negative ng/mL (Cutoff= 300) 07/06/16 18:43 U Marijuana (THC) Screen Negative ng/mL (Cutoff = 50) 07/06/16 18:43 Ethyl Alcohol < 10 mg/dL (0-10) 07/06/16 18:26 - Impressions Impressions Videofluoroscopic Swallow 07/09/16 08:10 IMPRESSION: Significant residual in the vallecular following multiple swallows. Penetration on nectar consistency of barium. Negative for aspiration. Please see separate speech pathology report for full discussion of findings and recommendations. D/ / Pete Raygoza MD / Pete Raygoza MD Interpreting Provider: Pete Raygoza MD Consult Discharge Plan - Plan Referrals: Lori Cruz, DO [Primary Care Provider] -
[2016-07-11] MEDS: *HR* Heparin 5,000 UNIT/ML VIAL SQ SCH ×2 (06:47→16:15)
--- NOTE | 2016-07-11 08:46 | Internal Med Progress Note ---
Date of Encounter: 07/11/16 Time of Encounter: 08:43 - Assessment and plan (1) Catatonia associated with another mental disorder Current Visit: Yes Status: Acute Assessment and plan: Might be related to severe depression Decrease dose of lorazepam from 1 mg down to 0.5 mg 3 times a day The medication seems to be helping but apparently makes the patient to sleepy Followed by psychiatry We will try to obtain records from [facility] behavioral medical unit (2) Parkinsonism Current Visit: Yes Status: Acute Assessment and plan: thought to be triggered by Abilify COnsider other etiologies /myopathies Avoid medications that could trigger extrapyramidal effects Discontinued Abilify permanently Continue Sinemet, followed by neurology MRI did not show any evidence of stroke Ach Ab and MUSK antibodies not reported yet 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 coli] (4) UTI (urinary tract infection) Current Visit: Yes Status: Acute Qualifiers: Urinary tract infection type: acute cystitis Hematuria presence: without hematuria Qualified Code(s): N30.00 - Acute cystitis without hematuria (5) Dysphagia Current Visit: Yes Status: Acute Assessment and plan: Likely related to parkinsonism/catatonia Modified mechanical diet Qualifiers: Dysphagia type: unspecified Qualified Code(s): R13.10 - Dysphagia, unspecified (6) Depression Current Visit: Yes Status: Chronic Assessment and plan: catatonic? psychiatry consulted Qualifiers: Depression Type: major depressive disorder Major depression recurrence: recurrent Active/Remission status: remission status unspecified Qualified Code(s): F33.9 - Major depressive disorder, recurrent, unspecified - Subjective Interval history: Improving slightly, symptoms worrisome for catatonia. Continue to show signs of parkinsonism, muscle rigidity, is able to open her mouth and eat a little better, but has swallowing difficulties. Denies any pain , chest pain, shortness of breath, no dysuria. Has a still generalized weakness , no fevers, no diarrhea - Constitutional Vitals: Temp Pulse Resp BP Pulse Ox 97.8 F 69 16 174/79 98 07/11/16 06:41 07/11/16 06:41 07/11/16 06:41 07/11/16 06:41 07/11/16 06:41 General appearance: Present: cooperative, mild distress (anxious/nervous), A&O X 3, pleasant, answers questions appropriately - Head Head exam: Present: atraumatic, normocephalic - Eye Eye exam: Present: PERRL, conjuntiva pink, sclera anicteric Pupils: Present: PERRL - Neck Neck exam general surgery: Present: supple, trachea midline. Absent: lymphadenopathy - Respiratory Respiratory exam: Present: CTAB. Absent: accessory muscle use, rales, rhonchi, wheezes - Cardiovascular Cardiovascular exam: Present: RRR, +S1, +S2. Absent: diastolic murmur, gallop, rubs, systolic murmur - GI/Abdominal GI/Abdominal exam: Present: normal bowel sounds, soft, no peritoneal signs. Absent: distended, tenderness - Extremities Exam Extremities exam: Present: warm, radial pulses palpable and symetrical. Absent : calf tenderness, cyanotic, pedal edema - Neurological Exam Neurological exam: Present: CN II-XII intact, oriented X3, no focal deficits. Absent: pronater drift, facial droop, speech deficit Additional comments: Severe weakness but able to talk a little more, still drools - Skin Skin exam: Present: dry, intact Internal Medicine: Result - Labs CBC & Chem 7: 07/07/16 06:14 07/09/16 04:46 - ABG Interpretation ABG results: PT/INR, D-dimer PT 11.0 Seconds (9.4-12.1) 07/06/16 18:26 Consult Discharge Plan - Plan Referrals: Lori Cruz DO [Primary Care Provider] -
[2016-07-11] MEDS: *HR* LORazepam 2 MG/ML VIAL IVP SCH ×3 (09:39→21:43)
[2016-07-11] MEDS: Carbidopa/Levodopa 25/100 TABLET PO SCH ×4 (09:42→21:43)
[2016-07-11] MEDS: Magnesium Oxide 400 MG TABLET PO SCH ×2 (09:43→21:43)
[2016-07-11] MEDS ORDERED: 0.9 % Sodium Chloride 1,000 ML ONE (16:13)
[2016-07-11] MEDS: 0.9 % Sodium Chloride 1,000 ML IVC SCH (17:40)
[2016-07-12] MEDS: 0.9 % Sodium Chloride 1,000 ML IVC SCH ×2 (02:26→14:39)
[2016-07-12 04:26] LABS: Hematocrit 40.4 % (35.3-44.9); Hemoglobin 13.1 g/dL (11.5-15.4); Mean Corpuscular HGB Conc 32.4 g/dL (31.6-35.5); Mean Corpuscular Hemoglobin 32.1 pg (28.0-33.3); Mean Platelet Volume 11.2 fL (9.4-12.4); Platelet Count 303 K/mcL (140-400); Red Blood Count 4.08 M/mcL (3.82-4.97); Red Cell Distribution Width 13.3 % (11.5-14.5)
[2016-07-12 04:45] LABS: BUN/Creatinine Ratio 17 (6-26); Blood Urea Nitrogen 11 mg/dL (7-20); Calcium 8.9 mg/dL (8.6-10.8); Carbon Dioxide 25 mEq/L (19-29); Chloride 107 mEq/L (98-109); Glucose 105 mg/dL (70-99); Osmolality,Calculated 292 (280-300); Sodium 141 mEq/L (136-145); eGFR For African Americans > 60 (> 60); eGFR For Non-African Americans > 60 (> 60)
[2016-07-12] MEDS: Ipratropium/Albuterol Neb 3 ML IH PRN (05:02)
[2016-07-12] MEDS: *HR* Heparin 5,000 UNIT/ML VIAL SQ SCH ×2 (06:21→17:39)
[2016-07-12] MEDS: Magnesium Oxide 400 MG TABLET PO SCH ×2 (09:28→21:39)
[2016-07-12] MEDS: Carbidopa/Levodopa 25/100 TABLET PO SCH ×4 (09:28→21:40)
[2016-07-12] MEDS: *HR* LORazepam 2 MG/ML VIAL IVP SCH ×3 (09:28→21:40)
[2016-07-12] MEDS: Aspirin 81 MG TAB.CHEW PO SCH (09:28)
--- NOTE | 2016-07-12 14:37 | Internal Med Progress Note ---
Date of Encounter: 07/12/16 Time of Encounter: 14:37 - Assessment and plan (1) Catatonia associated with another mental disorder Current Visit: Yes Status: Acute Assessment and plan: Might be related to severe depression Decreased dose of lorazepam from 1 mg down to 0.5 mg 3 times a day 1 mg was helping but made the patient too sleepy Followed by psychiatry We will try to obtain records from [facility] medical unit consider ECF placement (2) Parkinsonism Current Visit: Yes Status: Acute Assessment and plan: thought to be triggered by Abilify COnsider other etiologies /myopathies Avoid medications that could trigger extrapyramidal effects Discontinued Abilify permanently Continue Sinemet, followed by neurology MRI did not show any evidence of stroke Ach Ab and MUSK antibodies not reported yet 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 coli] (4) UTI (urinary tract infection) Current Visit: Yes Status: Acute Qualifiers: Urinary tract infection type: acute cystitis Hematuria presence: without hematuria Qualified Code(s): N30.00 - Acute cystitis without hematuria (5) Dysphagia Current Visit: Yes Status: Acute Assessment and plan: Likely related to parkinsonism/catatonia Modified mechanical diet Qualifiers: Dysphagia type: unspecified Qualified Code(s): R13.10 - Dysphagia, unspecified (6) Depression Current Visit: Yes Status: Chronic Assessment and plan: catatonic? psychiatry consulted Qualifiers: Depression Type: major depressive disorder Major depression recurrence: recurrent Active/Remission status: remission status unspecified Qualified Code(s): F33.9 - Major depressive disorder, recurrent, unspecified - Subjective Interval history: Improving slightly, symptoms worrisome for catatonia. Able to eat now, able to answer questions. muscle rigidity, is able to open her mouth and eat a little better, less swallowing difficulties. Denies any pain, chest pain, shortness of breath, no dysuria. Has a still generalized weakness, no fevers, no diarrhea - Constitutional Vitals: Temp Pulse Resp BP Pulse Ox 97.4 F L 105 15 142/80 100 07/12/16 12:13 07/12/16 12:13 07/12/16 12:13 07/12/16 12:13 07/12/16 12:13 General appearance: Present: cooperative, mild distress (anxious/nervous), A&O X 3, pleasant, answers questions appropriately - Head Head exam: Present: atraumatic, normocephalic - Eye Eye exam: Present: PERRL, conjuntiva pink, sclera anicteric Pupils: Present: PERRL - Neck Neck exam general surgery: Present: supple, trachea midline. Absent: lymphadenopathy - Respiratory Respiratory exam: Present: CTAB. Absent: accessory muscle use, rales, rhonchi, wheezes - Cardiovascular Cardiovascular exam: Present: RRR, +S1, +S2. Absent: diastolic murmur, gallop, rubs, systolic murmur - GI/Abdominal GI/Abdominal exam: Present: normal bowel sounds, soft, no peritoneal signs. Absent: distended, tenderness - Extremities Exam Extremities exam: Present: warm, radial pulses palpable and symetrical. Absent : calf tenderness, cyanotic, pedal edema - Neurological Exam Neurological exam: Present: CN II-XII intact, oriented X3. Absent: no focal deficits, pronater drift, facial droop, speech deficit Additional comments: severe generalized weakness, with rigidity - Skin Skin exam: Present: dry, intact Internal Medicine: Result - Labs CBC & Chem 7: 07/12/16 03:21 07/12/16 03:21 Labs: Short CBC 07/12/16 Range/Units 03:21 WBC 10.2 (4.3-11.1) K/mcL Hgb 13.1 (11.5-15.4) g/dL Hct 40.4 (35.3-44.9) % Plt Count 303 (140-400) K/mcL [facility] 07/12/16 03:21 Sodium 141 Potassium 4.0 Chloride 107 Carbon Dioxide 25 BUN 11 Creatinine 0.64 Glucose 105 H Calcium 8.9 - ABG Interpretation ABG results: PT/INR, D-dimer PT 11.0 Seconds (9.4-12.1) 07/06/16 18:26 Consult Discharge Plan - Plan Referrals: Lori Cruz DO [Primary Care Provider] -
[2016-07-13] MEDS: 0.9 % Sodium Chloride 1,000 ML IVC SCH ×2 (01:32→13:13)
[2016-07-13] MEDS: *HR* Heparin 5,000 UNIT/ML VIAL SQ SCH ×2 (06:02→20:15)
[2016-07-13] MEDS: *HR* LORazepam 2 MG/ML VIAL IVP SCH ×3 (08:46→20:44)
[2016-07-13] MEDS: Magnesium Oxide 400 MG TABLET PO SCH ×2 (08:46→20:43)
[2016-07-13] MEDS: Aspirin 81 MG TAB.CHEW PO SCH (08:46)
[2016-07-13] MEDS: Carbidopa/Levodopa 25/100 TABLET PO SCH ×4 (08:46→20:43)
--- NOTE | 2016-07-13 15:00 | Electrocardiograph Report ---
[place] [id number] Test Date: 2016-07-12 Pat Name: Mayela Duckworth Department: 114 Room: 3B Gender: F [employer] Supervisor: : [id number] Requested By: Jose Li Order Number: [id number] Reading MD: Steve Griffin MD Measurements Intervals [place] Rate: 96 P: 84 IA: 141 QRS: 54 QRSD: 66 T: 48 QT: 300 QTc: 354 Interpretive Statements SINUS RHYTHM WITH MARKED SINUS ARRHYTHMIA Electronically Signed On 07-13-2016 14:58:51 EDT by Steve Griffin MD
--- NOTE | 2016-07-13 16:51 | Internal Med Progress Note ---
Date of Encounter: 07/13/16 Time of Encounter: 16:49 - Assessment and plan (1) UTI (urinary tract infection) Current Visit: Yes Status: Acute Assessment and plan: finished course of rocephin and has been started on prophylactic nitrofurantoin. Qualifiers: Urinary tract infection type: acute cystitis Hematuria presence: without hematuria Qualified Code(s): N30.00 - Acute cystitis without hematuria (2) Sepsis Current Visit: Yes Status: Acute Assessment and plan: Sepsis secondary to urinary tract infection, Escherichia coli resistant to ciprofloxacin completed 5 days of Rocephin Patient has history of multiple UTIs, may benefit from continuous antibiotic prophylaxis upon discharge started on prophylactic dose of nitrofurantoin Qualifiers: Sepsis type: Escherichia coli Qualified Code(s): A41.51 - Sepsis due to Escherichia coli [E. coli] (3) Depression Current Visit: Yes Status: Chronic Assessment and plan: catatonic? psychiatry consulted and recommneded to try ativan 0.5-1 mg tid for now. seems to have mild improvement , is able to respond and is eating, will continue to monitor Qualifiers: Depression Type: major depressive disorder Major depression recurrence: recurrent Active/Remission status: remission status unspecified Qualified Code(s): F33.9 - Major depressive disorder, recurrent, unspecified (4) Parkinsonism Current Visit: Yes Status: Acute Assessment and plan: thought to be triggered by Abilify COnsider other etiologies /myopathies Avoid medications that could trigger extrapyramidal effects Discontinued Abilify permanently Continue Sinemet, followed by neurology MRI did not show any evidence of stroke Ach Ab and MUSK antibodies not reported yet 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 able to eat, followed by psychiatry for catatonia related to severe depression. awaiting ECF placement. - Constitutional Vitals: Temp Pulse Resp BP Pulse Ox 98.2 F 98 16 125/71 100 07/13/16 15:11 07/13/16 15:11 07/13/16 15:11 07/13/16 15:11 07/13/16 15:11 General appearance: Present: cooperative, A&O X 3, pleasant, answers questions appropriately Exam: - Head Head exam: Present: atraumatic, normocephalic - Eye Eye exam: Present: PERRL, conjuntiva pink, sclera anicteric Pupils: Present: PERRL - Neck Neck exam general surgery: Present: supple, trachea midline. Absent: lymphadenopathy - Respiratory Respiratory exam: Present: creptns on the right side, no wheezing. Absent: accessory muscle use, rales, rhonchi, wheezes - Cardiovascular Cardiovascular exam: Present: RRR, +S1, +S2. Absent: diastolic murmur, gallop, rubs, systolic murmur - GI/Abdominal GI/Abdominal exam: Present: normal bowel sounds, soft, no peritoneal signs. Absent: distended, tenderness - Extremities Exam Extremities exam: Present: warm, radial pulses palpable and symetrical. Absent : calf tenderness, cyanotic, pedal edema - Neurological Exam Neurological exam: Present: CN II-XII intact, oriented X3. Absent: no focal deficits, pronater drift, facial droop, speech deficit Additional comments: severe generalized weakness, with rigidity - Skin Skin exam: Present: dry, intact Internal Medicine: Result - Labs CBC & Chem 7: 07/12/16 03:21 07/12/16 03:21 - ABG Interpretation ABG results: PT/INR, D-dimer PT 11.0 Seconds (9.4-12.1) 07/06/16 18:26 Consult Discharge Plan - Plan Referrals: Lori Cruz DO [Primary Care Provider] -
[2016-07-13] MEDS: Ipratropium/Albuterol Neb 3 ML IH PRN (20:33)
[2016-07-13] MEDS: *HR* OxyCODONE Immed Rel 5 MG TABLET PO PRN (20:43)
[2016-07-14] MEDS: *HR* Heparin 5,000 UNIT/ML VIAL SQ SCH ×2 (05:18→18:14)
[2016-07-14] MEDS: Magnesium Oxide 400 MG TABLET PO SCH ×2 (08:22→20:04)
[2016-07-14] MEDS: Aspirin 81 MG TAB.CHEW PO SCH (08:24)
[2016-07-14] MEDS: *HR* LORazepam 2 MG/ML VIAL IVP SCH ×3 (08:24→15:33)
[2016-07-14] MEDS: Carbidopa/Levodopa 25/100 TABLET PO SCH ×4 (08:25→20:04)
[2016-07-14] MEDS: Acetaminophen 325 MG TABLET PO PRN (09:05)
[2016-07-14] MEDS: *HR* OxyCODONE Immed Rel 5 MG TABLET PO PRN ×2 (09:45→18:14)
--- NOTE | 2016-07-14 17:16 | Internal Med Progress Note ---
Date of Encounter: 07/14/16 Time of Encounter: 17:13 - Assessment and plan (1) UTI (urinary tract infection) Current Visit: Yes Status: Acute Assessment and plan: finished course of rocephin and has been started on prophylactic nitrofurantoin. Qualifiers: Urinary tract infection type: acute cystitis Hematuria presence: without hematuria Qualified Code(s): N30.00 - Acute cystitis without hematuria (2) Sepsis Current Visit: Yes Status: Acute Assessment and plan: Sepsis secondary to urinary tract infection, Escherichia coli resistant to ciprofloxacin completed 5 days of Rocephin Patient has history of multiple UTIs, may benefit from continuous antibiotic prophylaxis upon discharge started on prophylactic dose of nitrofurantoin Qualifiers: Sepsis type: Escherichia coli Qualified Code(s): A41.51 - Sepsis due to Escherichia coli [E. coli] (3) Depression Current Visit: Yes Status: Chronic Assessment and plan: catatonic?, significant clinical improvement psychiatry consulted and recommneded to try ativan 0.5-1 mg tid for now. zuleika does not want to take ativan 0.5 at this time as this makes her very sleepy, will keep it as prn. 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 denies any chest pain, sob or cough, no fever. able to eat, followed by psychiatry for catatonia related to severe depression. awaiting ECF placement. - Constitutional Vitals: Temp Pulse Resp BP Pulse Ox 97.9 F 101 16 145/80 98 07/14/16 15:24 07/14/16 15:24 07/14/16 15:24 07/14/16 15:24 07/14/16 15:24 General appearance: Present: cooperative, A&O X 3, pleasant, answers questions appropriately Exam: - Head Head exam: Present: atraumatic, normocephalic - Eye Eye exam: Present: PERRL, conjuntiva pink, sclera anicteric Pupils: Present: PERRL - Neck Neck exam general surgery: Present: supple, trachea midline. Absent: lymphadenopathy - Respiratory Respiratory exam: Present: no wheezing, some conducted sounds Absent: accessory muscle use, rales, rhonchi, wheezes - Cardiovascular Cardiovascular exam: Present: RRR, +S1, +S2. Absent: diastolic murmur, gallop, rubs, systolic murmur - GI/Abdominal GI/Abdominal exam: Present: normal bowel sounds, soft, no peritoneal signs. Absent: distended, tenderness - Extremities Exam Extremities exam: Present: warm, radial pulses palpable and symetrical. Absent : calf tenderness, cyanotic, pedal edema - Neurological Exam Neurological exam: Present: CN II-XII intact, oriented X3. Absent: no focal deficits, pronater drift, facial droop, speech deficit - Skin Skin exam: Present: dry, intact Internal Medicine: Result - Labs CBC & Chem 7: 07/12/16 03:21 07/12/16 03:21 - ABG Interpretation ABG results: PT/INR, D-dimer PT 11.0 Seconds (9.4-12.1) 07/06/16 18:26 - Impressions Impressions Chest X-Ray 07/13/16 17:50 IMPRESSION: No acute cardiopulmonary process. D/ / 07/13/2016 19:04:20 Shaggy Armstrong MD / [email or web address] Interpreting Provider: Shaggy Armstrong MD Consult Discharge Plan - Plan Referrals: Lori Cruz DO [Primary Care Provider] -
[2016-07-14] MEDS ORDERED: *HR* LORazepam 2 MG/ML VIAL IVP PRN (17:18)
[2016-07-15] MEDS: *HR* Heparin 5,000 UNIT/ML VIAL SQ SCH ×2 (05:53→17:32)
[2016-07-15] MEDS: Magnesium Oxide 400 MG TABLET PO SCH ×2 (09:39→21:31)
[2016-07-15] MEDS: Aspirin 81 MG TAB.CHEW PO SCH (09:39)
[2016-07-15] MEDS: Acetaminophen 325 MG TABLET PO PRN (09:39)
[2016-07-15] MEDS: Carbidopa/Levodopa 25/100 TABLET PO SCH ×4 (09:39→21:31)
[2016-07-15] MEDS ORDERED: Bisacodyl 10 MG RECTAL SUPPOSITORY RC ONE (12:01)
--- NOTE | 2016-07-15 18:23 | Internal Med Progress Note ---
Date of Encounter: 07/15/16 Time of Encounter: 18:21 - Assessment and plan (1) UTI (urinary tract infection) Current Visit: Yes Status: Acute Assessment and plan: finished course of rocephin and has been started on prophylactic nitrofurantoin. Qualifiers: Urinary tract infection type: acute cystitis Hematuria presence: without hematuria Qualified Code(s): N30.00 - Acute cystitis without hematuria (2) Sepsis Current Visit: Yes Status: Acute Assessment and plan: Sepsis secondary to urinary tract infection, Escherichia coli resistant to ciprofloxacin completed 5 days of Rocephin Patient has history of multiple UTIs, may benefit from continuous antibiotic prophylaxis upon discharge started on prophylactic dose of nitrofurantoin Qualifiers: Sepsis type: Escherichia coli Qualified Code(s): A41.51 - Sepsis due to Escherichia coli [E. 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 have called psych, has not been around to review prior records. clinically improved, on ativan prn for now awaiting ECF placement - Subjective Interval history: seen at the bedside, appears much better today, awake and alert, eating well , c /o not being able to pass stool denies any chest pain, sob or cough, no fever. able to eat, followed by psychiatry for catatonia related to severe depression. awaiting ECF placement. - Constitutional Vitals: Temp Pulse Resp BP Pulse Ox 97.4 F L 108 16 158/84 100 07/15/16 16:20 07/15/16 16:20 07/15/16 16:20 07/15/16 16:20 07/15/16 16:20 General appearance: Present: cooperative, A&O X 3, pleasant, answers questions appropriately Exam: Exam: - Head Head exam: Present: atraumatic, normocephalic - Eye Eye exam: Present: PERRL, conjuntiva pink, sclera anicteric Pupils: Present: PERRL - Neck Neck exam general surgery: Present: supple, trachea midline. Absent: lymphadenopathy - Respiratory Respiratory exam: Present: no wheezing, some conducted sounds Absent: accessory muscle use, rales, rhonchi, wheezes - Cardiovascular Cardiovascular exam: Present: RRR, +S1, +S2. Absent: diastolic murmur, gallop, rubs, systolic murmur - GI/Abdominal GI/Abdominal exam: Present: normal bowel sounds, soft, no peritoneal signs. Absent: distended, tenderness - Extremities Exam Extremities exam: Present: warm, radial pulses palpable and symetrical. Absent : calf tenderness, cyanotic, pedal edema - Neurological Exam Neurological exam: Present: CN II-XII intact, oriented X3. Absent: no focal deficits, pronater drift, facial droop, speech deficit - Skin Skin exam: Present: dry, intact Internal Medicine: Result - Labs CBC & Chem 7: 07/12/16 03:21 07/12/16 03:21 - ABG Interpretation ABG results: PT/INR, D-dimer PT 11.0 Seconds (9.4-12.1) 07/06/16 18:26 Consult Discharge Plan - Plan Referrals: Lori Cruz DO [Primary Care Provider] -
[2016-07-15] MEDS ORDERED: Hydrocortisone Acetate 25 MG RECTAL SUPPOSITORY RC PRN (19:49)
[2016-07-16] MEDS ORDERED: Ondansetron 4 MG/2 ML VIAL IVP PRN (02:13)
[2016-07-16] MEDS: *HR* Heparin 5,000 UNIT/ML VIAL SQ SCH (05:50)
--- NOTE | 2016-07-16 07:59 | Discharge Summary ---
Date of Encounter: 07/16/16 Time of Encounter: 07:30 - Discharge Diagnosis (1) Sepsis Priority: Primary Status: Acute Qualifiers: Sepsis type: Escherichia coli Qualified Code(s): A41.51 - Sepsis due to Escherichia coli [E. coli] (2) UTI (urinary tract infection) Priority: Primary Status: Acute Qualifiers: Urinary tract infection type: acute cystitis Hematuria presence: without hematuria Qualified Code(s): N30.00 - Acute cystitis without hematuria (3) Catatonia associated with another mental disorder Priority: Primary Status: Acute (4) Dysphagia Priority: Primary Status: Chronic Qualifiers: Dysphagia type: unspecified Qualified Code(s): R13.10 - Dysphagia, unspecified (5) Depression Priority: Primary Status: Acute Qualifiers: Depression Type: major depressive disorder Major depression recurrence: recurrent Active/Remission status: remission status unspecified Qualified Code(s): F33.9 - Major depressive disorder, recurrent, unspecified (6) Parkinsonism Priority: Primary Status: Acute Qualifiers: Parkinsonism type: secondary Parkinsonism Secondary Parkinsonism type: neuroleptic-induced Qualified Code(s): G21.11 - Neuroleptic induced parkinsonism - Discharge Medications Home Medications: Melatonin 3 mg PO HS 07/06/16 [History] Memantine [Namenda] 5 mg PO DAILY 07/06/16 [History] Acetaminophen [Tylenol] 650 mg PO Q6HR PRN #0 tablet 07/16/16 [Rx] Aspirin 81 mg PO DAILY tab.chew 07/16/16 [Rx] Bisacodyl [Dulcolax] 10 mg PO DAILY PRN #0 tablet 07/16/16 [Rx] Carbidopa/Levodopa 25/100 [Sinemet 25/100] 1 each PO QID tablet 07/16/16 [Rx] Docusate [Colace] 100 mg PO BID capsule 07/16/16 [Rx] Hydrocortisone Acetate [Anucort-Hc] 25 mg RC BID PRN #0 supp.rect 07/16/16 [Rx] Ipratropium/Albuterol Neb [Duoneb] 3 ml IH [id number] PRN #0 inhsol 07/16/16 [Rx] Magnesium Oxide [Mag-Ox] 400 mg PO BID tablet 07/16/16 [Rx] Nitrofurantoin [Macrodantin] 50 mg PO HS capsule 07/16/16 [Rx] hydrALAZINE [HydrALAZINE] 75 mg PO Q8HR tablet 07/16/16 [Rx] Allergies/Adverse Reactions: Allergies Amoxicillin Allergy (Verified 05/03/16 09:00) Rash Sulfa (Sulfonamide Antibiotics) Allergy (Verified 05/03/16 09:00) Rash aripiprazole [From Abilify] Adverse Reaction (Verified 07/08/16 12:56) Cramping of the Muscles Date of admission: 07/13/16 09:51 Primary care physician: Hannah Kim - Patient Status Disposition: Transfer Inpatient Rehab Fac Condition: Good Functional capacity at discharge: uses cane/walker Overall status at discharge: patient is not back to baseline - Discharge Instructions Follow Up With: Lori Cruz DO [Primary Care Provider] - Forms: ED Satisfaction Letter - Diet and Activity Activity: as per physical therapy Diet: low fat, low cholesterol, low salt diet Interval History: patient has no complains. Hospital course: Ms. Duckworth is a 80 year old female with past medical history of slurred speech and difficulty swallowing. She was found to have sepsis secondary to Escherichia coli UTI and completed IV ceftriaxone well inpatient. She was started on prophylactic nitrofurantoin due to recurrent episodes of UTI. She was diagnosed of parkinsonism secondary to Abilify and was started on Sinemet. MRI showed no acute process. She was also diagnosed with catatonia related to severe depression. Her catatonia improved slowly and she was able to do some physical therapy while inpatient. PLAN: Patient was discharged to rehabilitation. She will follow-up in the psychiatry clinic in 1-2 weeks. - Time Spent with Patient Total time spent providing and/or coordinating discharge services: - Constitutional Vitals: Temp Pulse Resp BP Pulse Ox 98.0 F 104 16 182/84 98 07/16/16 03:33 07/16/16 03:33 07/16/16 03:33 07/16/16 03:33 07/16/16 03:33 General appearance: Present: cooperative, A&O X 3, pleasant, answers questions appropriately - Neck Neck exam general surgery: Present: supple, trachea midline. Absent: lymphadenopathy - Respiratory Respiratory exam: Present: CTAB - Cardiovascular Cardiovascular exam: Present: RRR - GI/Abdominal GI/Abdominal exam: Present: normal bowel sounds, soft. Absent: distended, tenderness - Extremities Exam Extremities exam: Absent: pedal edema - Back Exam Back exam: Absent: CVA tenderness (L), CVA tenderness (R) - Neurological Exam Neurological exam: Present: alert, oriented X3. Absent: facial droop, speech deficit
[2016-07-16] MEDS ORDERED: hydrALAZINE 25 MG TABLET PO SCH (08:17)
[2016-07-16] MEDS: Aspirin 81 MG TAB.CHEW PO SCH (09:19)
[2016-07-16] MEDS: Magnesium Oxide 400 MG TABLET PO SCH (09:19)
[2016-07-16] MEDS: Carbidopa/Levodopa 25/100 TABLET PO SCH (09:19)
--- NOTE | 2016-07-16 09:19 | Physician Discharge Referral ---
ExtendedCare Referral Info Transfer To: [facility] Provider in Charge: sabi Provider in Charge after Transfer: PCP Institutional Level of Care: Skilled - Diagnosis (1) Sepsis Status: Acute (2) UTI (urinary tract infection) Status: Acute (3) Catatonia associated with another mental disorder Status: Acute (4) Dysphagia Status: Chronic (5) Depression Status: Acute (6) Parkinsonism Status: Acute - Transfer Medications Home Medications: Melatonin 3 mg PO HS 07/06/16 [History] Memantine [Namenda] 5 mg PO DAILY 07/06/16 [History] Acetaminophen [Tylenol] 650 mg PO Q6HR PRN #0 tablet 07/16/16 [Rx] Aspirin 81 mg PO DAILY tab.chew 07/16/16 [Rx] Bisacodyl [Dulcolax] 10 mg PO DAILY PRN #0 tablet 07/16/16 [Rx] Carbidopa/Levodopa 25/100 [Sinemet 25/100] 1 each PO QID tablet 07/16/16 [Rx] Docusate [Colace] 100 mg PO BID capsule 07/16/16 [Rx] Hydrocortisone Acetate [Anucort-Hc] 25 mg RC BID PRN #0 supp.rect 07/16/16 [Rx] Ipratropium/Albuterol Neb [Duoneb] 3 ml IH [id number] PRN #0 inhsol 07/16/16 [Rx] Magnesium Oxide [Mag-Ox] 400 mg PO BID tablet 07/16/16 [Rx] Nitrofurantoin [Macrodantin] 50 mg PO HS capsule 07/16/16 [Rx] hydrALAZINE [HydrALAZINE] 75 mg PO Q8HR tablet 07/16/16 [Rx] Allergies/Adverse Reactions: Allergies Amoxicillin Allergy (Verified 05/03/16 09:00) Rash Sulfa (Sulfonamide Antibiotics) Allergy (Verified 05/03/16 09:00) Rash aripiprazole [From Abilify] Adverse Reaction (Verified 07/08/16 12:56) Cramping of the Muscles - Respiratory Orders Smoking Cessation: Smoking cessation has been advised. For more information, call the [place] Tobacco Quit Line at 0-013-PDII-NOW. - Advance Directives Code Status: Full Code - Mobility Orders Ambulate - Rehabiliation Orders Rehab Potential: Fair Rehab Orders: Evaluation for Physical Therapy, Evaluation for Occupational Therapy - Diet Orders No Added Salt (FRANKI), Cardiac CERTIFICATION: I certify that the transfer of the above named patient to an Extended Care Facility is necessary for the continuing treatment of the diagnosis listed. The above information is true and accurate reflection of patient's current condition. Confidential - Redisclosure prohibited without a patient's written consent.
[2016-07-16 11:01] VITALS: BP 90/54
== END 2016-07-16 11:52 | DRG 872 ==
LOC: EMEROO 17:55 → 3ANU 17:55 → 3NENU 07-07 00:01 → 3BNU 07-07 10:54 → 3NENU 07-09 17:14 → 3BNU 07-12 09:05 → SUATTDRO 07-13 09:51
PROVIDERS: ADMIT Pediatrics; ATTEND Internal Medicine

== ENCOUNTER 2021-05-19 11:31 | Inpatient (IN) ==
[2021-05-19] MEDS ORDERED: Acetaminophen 325 MG TABLET PO ONE (11:45)
[2021-05-19] MEDS ORDERED: methocarbamoL 500 MG TABLET PO ONE (11:46)
[2021-05-19] MEDS ORDERED: Naloxone 0.4 MG/ML INJ IVP PRN (14:45)
[2021-05-19] MEDS ORDERED: Ondansetron 4 MG/2 ML VIAL IVP PRN (14:45)
[2021-05-19 14:52] LABS: Basophils % 0.3 %; Hematocrit 34.9 % (35.3-44.9); Hemoglobin 11.7 g/dL (11.5-15.4); Immature Granulocytes % 0.4 % (0-4); Lymphocytes # 0.5 K/mcL (0.6-4.6); Lymphocytes % 4.9 %; Mean Corpuscular HGB Conc 33.5 g/dL (31.6-35.5); Mean Corpuscular Hemoglobin 31.3 pg (28.0-33.3); Mean Corpuscular Volume 93.3 fL (83.0-100.0); Monocytes # 1.1 K/mcL (0.0-1.3); Monocytes % 10.9 %; Neutrophils # 8.6 K/mcL (1.6-8.9); Platelet Count 268 K/mcL (140-400); Red Blood Count 3.74 M/mcL (3.82-4.97); Red Cell Distribution Width 13.2 % (11.5-14.5); Segmented Neutrophils % 83.5 %; White Blood Count 10.3 K/mcL (4.3-11.1)
[2021-05-19 14:59] LABS: Prothrombin Time 10.6 Seconds (9.4-12.1)
[2021-05-19 15:08] LABS: BUN/Creatinine Ratio 18 (6-26); Blood Urea Nitrogen 15 mg/dL (8-23); Carbon Dioxide 22 mEq/L (23-29); Chloride 108 mEq/L (98-107); Glucose 90 mg/dL (70-105); Osmolality,Calculated 286 (280-300); Sodium 138 mEq/L (136-145); eGFR For African Americans > 60 (> 60); eGFR For Non-African Americans > 60 (> 60)
[2021-05-19 15:08] LABS: Bilirubin,Urine Negative (Negative); Blood,Urine Negative (Negative); Clarity,Urine Clear (Clear); Color,Urine Colorless (Yellow); Glucose,Urine (UA) Normal (Normal); Ketones,Urine Negative (Negative); Leukocyte Esterase,Urine Trace (Negative); Nitrite,Urine Negative (Negative); Protein,Urine Negative (Neg-Trace); RBC,Urine 0-3 per hpf (0-3); Specific Gravity,Urine 1.011 (1.010-1.025); Squamous Epithelial Cell,Urine Few per hpf (None-Few); Urobilinogen,Urine Normal (Normal); WBC,Urine 0-3 per hpf (0-3)
[2021-05-19] MEDS ORDERED: *HR* HYDROmorphone PF 0.5 MG/0.5 ML SYRINGE IVP PRN (16:34)
[2021-05-19] MEDS ORDERED: *HR* FentaNYL (PF) 100 MCG/2 ML VIAL IVP PRN (16:34)
[2021-05-19] MEDS ORDERED: *HR* Propofol 200 MG/20 ML VIAL IVP ONE (18:12)
[2021-05-19] MEDS ORDERED: *HR* FentaNYL (PF) 100 MCG/2 ML VIAL ONE (18:12)
[2021-05-19] MEDS ORDERED: Ondansetron 4 MG/2 ML VIAL ONE (18:12)
[2021-05-19] MEDS ORDERED: *HR* Rocuronium Bromide 50 MG/5 ML VIAL ONE (18:12)
[2021-05-19] MEDS ORDERED: Lidocaine -MPF 2% 5 ML VIAL ONE (18:12)
[2021-05-19] MEDS ORDERED: Lidocaine HCL 4 ML Topical Solution (Laryng-O-Jet Kit Sterile Pak) TP ONE (18:18)
[2021-05-19] MEDS ORDERED: Ketamine HCL *QUVA* 50mg (1mL) SYRINGE ONE (18:22)
[2021-05-19] MEDS ORDERED: Vancomycin 1,000 MG VIAL ONE (18:28)
[2021-05-19] MEDS ORDERED: Sugammadex Sodium 200 MG/2 ML VIAL IV ONE (19:57)
[2021-05-19] MEDS: CeFAZolin 2 GM/120 ML BAG IVPB SCH (23:54)
[2021-05-20 05:16] LABS: Hematocrit 27.6 % (35.3-44.9)
[2021-05-20 05:21] LABS: Hemoglobin 8.9 g/dL (11.5-15.4)
[2021-05-20 07:36] LABS: BUN/Creatinine Ratio 21 (6-26); Blood Urea Nitrogen 18 mg/dL (8-23); Calcium 8.1 mg/dL (8.6-10.3); Carbon Dioxide 22 mEq/L (23-29); Chloride 105 mEq/L (98-107); Glucose 112 mg/dL (70-105); Osmolality,Calculated 285 (280-300); Potassium 4.3 mEq/L (3.5-5.1); Sodium 136 mEq/L (136-145); eGFR For African Americans > 60 (> 60); eGFR For Non-African Americans > 60 (> 60)
[2021-05-20] MEDS: CeFAZolin 2 GM/120 ML BAG IVPB SCH (09:14)
[2021-05-20] MEDS ORDERED: Ketorolac 30 MG/ML VIAL IVP PRN (10:28)
[2021-05-20] MEDS ORDERED: *HR* HYDROcodone/Acet 5/325 mg TABLET PO PRN (10:30)
[2021-05-20] MEDS: Acetaminophen 325 MG TABLET PO PRN ×2 (10:46→18:43)
[2021-05-20] MEDS ORDERED: Aspirin 81 MG TAB.CHEW PO ONE (11:12)
[2021-05-20] MEDS ORDERED: Ketorolac 30 MG/ML VIAL IVP ONE (11:12)
[2021-05-21] MEDS: Acetaminophen 325 MG TABLET PO PRN (02:44)
[2021-05-21 06:45] LABS: Hematocrit 22.4 % (35.3-44.9)
[2021-05-21 06:46] LABS: Basophils # 0.1 K/mcL (0.0-0.2); Basophils % 0.9 %; Eosinophils # 0.2 K/mcL (0.0-0.6); Eosinophils % 2.7 %; Hematocrit 22.3 % (35.3-44.9); Hemoglobin 7.3 g/dL (11.5-15.4); Hemoglobin 7.4 g/dL (11.5-15.4); Immature Granulocytes % 0.2 % (0-4); Lymphocytes # 1.1 K/mcL (0.6-4.6); Lymphocytes % 17.2 %; Mean Corpuscular HGB Conc 33.2 g/dL (31.6-35.5); Mean Corpuscular Hemoglobin 31.9 pg (28.0-33.3); Mean Corpuscular Volume 96.1 fL (83.0-100.0); Mean Platelet Volume 10.5 fL (9.4-12.4); Monocytes # 1.4 K/mcL (0.0-1.3); Monocytes % 22.4 %; Neutrophils # 3.6 K/mcL (1.6-8.9); Platelet Count 203 K/mcL (140-400); Red Blood Count 2.32 M/mcL (3.82-4.97); Red Cell Distribution Width 13.5 % (11.5-14.5); Segmented Neutrophils % 56.6 %; White Blood Count 6.3 K/mcL (4.3-11.1)
[2021-05-21 06:58] LABS: Calcium 7.6 mg/dL (8.6-10.3); Potassium 3.7 mEq/L (3.5-5.1)
[2021-05-21 07:17] LABS: Adenovirus Not Detected (Not Detect); Bordetella Pertussis Not Detected (Not Detect); Chlamydophila pneumoniae Not Detected (Not Detect); Coronavirus 229E Not Detected (Not Detect); Coronavirus HKU1 Not Detected (Not Detect); Coronavirus NL63 Not Detected (Not Detect); Coronavirus OC43 Not Detected (Not Detect); Human Metapneumovirus Not Detected (Not Detect); Human Rhinovirus/Enterovirus Not Detected (Not Detect); Influenza A Subtype 2009 H1 Not Detected (Not Detect); Influenza B Not Detected (Not Detect); Mycoplasma pneumoniae Not Detected (Not Detect); Parainfluenza Virus 1 Not Detected (Not Detect); Parainfluenza Virus 2 Not Detected (Not Detect); Parainfluenza Virus 3 Not Detected (Not Detect); Parainfluenza Virus 4 Not Detected (Not Detect); Respiratory Syncytial Virus Not Detected (Not Detect); SARS-CoV-2 Not Detected (Not Detect)
[2021-05-21] MEDS ORDERED: Aspirin 325 MG TABLET PO SCH (09:00)
[2021-05-21] MEDS ORDERED: BuPROPion XL (24 HR) 150 MG TABLET PO SCH (09:00)
[2021-05-21 13:11] LABS: Hematocrit 24.3 % (35.3-44.9)
[2021-05-21 15:13] VITALS: BP 104/54; PULSE 82; TEMP 98.2; O2SAT 95
== END 2021-05-21 17:55 | DRG 481 ==
LOC: EMEROOARM 11:31 → 4WAOSI 15:18
PROVIDERS: ADMIT Internal Medicine; ATTEND Internal Medicine

== ENCOUNTER 2021-06-12 17:06 | Observation (INO) ==
[2021-06-12 18:01] LABS: Bilirubin,Urine Negative (Negative); Blood,Urine Small (Negative); Clarity,Urine Clear (Clear); Color,Urine Yellow (Yellow); Glucose,Urine (UA) Normal (Normal); Ketones,Urine Negative (Negative); Leukocyte Esterase,Urine Negative (Negative); Nitrite,Urine Negative (Negative); PH,Urine 6.5 pH Units (5.0-8.0); Protein,Urine 100 mg/dL (Neg-Trace); RBC,Urine 0-3 per hpf (0-3); Specific Gravity,Urine 1.028 (1.010-1.025); Squamous Epithelial Cell,Urine Few per hpf (None-Few); Urobilinogen,Urine Normal (Normal); WBC,Urine 0-3 per hpf (0-3)
[2021-06-12] MEDS ORDERED: Isovue-370 500 ML BOTTLE IVP ONE (18:23)
[2021-06-12 18:44] LABS: Basophils # 0.1 K/mcL (0.0-0.2); Basophils % 0.4 %; Hematocrit 34.4 % (35.3-44.9); Hemoglobin 10.9 g/dL (11.5-15.4); Immature Granulocytes % 0.8 % (0-4); Lymphocytes # 0.4 K/mcL (0.6-4.6); Lymphocytes % 3.6 %; Mean Corpuscular HGB Conc 31.7 g/dL (31.6-35.5); Mean Corpuscular Hemoglobin 30.5 pg (28.0-33.3); Mean Corpuscular Volume 96.4 fL (83.0-100.0); Mean Platelet Volume 9.5 fL (9.4-12.4); Monocytes # 2.4 K/mcL (0.0-1.3); Monocytes % 21.1 %; Platelet Count 365 K/mcL (140-400); Red Blood Count 3.57 M/mcL (3.82-4.97); Red Cell Distribution Width 13.4 % (11.5-14.5); Segmented Neutrophils % 74.1 %; White Blood Count 11.3 K/mcL (4.3-11.1)
[2021-06-12 18:50] LABS: Neutrophils # 8.4 K/mcL (1.6-8.9)
[2021-06-12 19:02] LABS: BUN/Creatinine Ratio 12 (6-26); Blood Urea Nitrogen 11 mg/dL (8-23); Calcium 9.1 mg/dL (8.6-10.3); Carbon Dioxide 24 mEq/L (23-29); Chloride 103 mEq/L (98-107); Glucose 107 mg/dL (70-105); Osmolality,Calculated 288 (280-300); Potassium 2.6 mEq/L (3.5-5.1); Sodium 139 mEq/L (136-145); eGFR For African Americans > 60 (> 60); eGFR For Non-African Americans 60 (> 60)
[2021-06-12 19:22] LABS: Platelet Estimate Normal (Normal)
[2021-06-12] MEDS ORDERED: Ipratropium/Albuterol Neb 3 ML IH ONE (20:20)
[2021-06-12 21:01] LABS: Alanine Aminotransferase 5 Units/L (7-52); Albumin 3.4 g/dL (3.5-5.7); Albumin/Globulin Ratio 1.1 (1.1-2.2); Alkaline Phosphatase 126 Units/L (34-104); Aspartate Amino Transferase 10 Units/L (13-39); BUN/Creatinine Ratio 12 (6-26); Bilirubin,Total 0.3 mg/dL (0.3-1.0); Blood Urea Nitrogen 11 mg/dL (8-23); Calcium 8.8 mg/dL (8.6-10.3); Carbon Dioxide 23 mEq/L (23-29); Chloride 104 mEq/L (98-107); Glucose 102 mg/dL (70-105); Osmolality,Calculated 284 (280-300); Potassium 2.6 mEq/L (3.5-5.1); Sodium 137 mEq/L (136-145); Total Protein 6.4 g/dL (6.4-8.9); eGFR For African Americans > 60 (> 60); eGFR For Non-African Americans > 60 (> 60)
[2021-06-12 21:33] LABS: Magnesium 2.1 mg/dL (1.6-2.6)
[2021-06-12] MEDS ORDERED: Melatonin 3 MG TABLET PO PRN (22:38)
[2021-06-12] MEDS ORDERED: Ondansetron 4 MG/2 ML VIAL IVP PRN (22:38)
[2021-06-12] MEDS ORDERED: Naloxone 0.4 MG/ML INJ IVP PRN (22:38)
[2021-06-13] MEDS: Potassium Chloride Elixir 20 MEQ/15 ML UDC PO SCH ×2 (00:12→09:11)
[2021-06-13] MEDS ORDERED: Furosemide 20 MG/2 ML VIAL IVP ONE (03:08)
[2021-06-13] MEDS ORDERED: Saliva Stimulant 44.3ml BOTTLE PO PRN (03:11)
[2021-06-13] MEDS ORDERED: Artificial Tears SOLN 15 ML BOTTLE BOTH EYES PRN (03:11)
[2021-06-13] MEDS ORDERED: Saline Nasal Spray 44 ML BOTTLE NS PRN (03:11)
[2021-06-13] MEDS ORDERED: Dextrose 4 GM Chewable Tablets PO PRN ×2 (03:37)
[2021-06-13] MEDS ORDERED: D5% in Water 1,000 ML IVC PRN (03:37)
[2021-06-13] MEDS ORDERED: *HR* Dextrose 50 % in Water (Syg) 50 ML SYRINGE IVP PRN (03:37)
[2021-06-13] MEDS: *HR* HYDROcodone/Acet 5/325 mg TABLET PO PRN (04:40)
[2021-06-13] MEDS: *HR* Enoxaparin 40 MG/0.4 ML SYRINGE SQ SCH (04:45)
[2021-06-13 04:47] LABS: Hematocrit 32.9 % (35.3-44.9); Hemoglobin 10.4 g/dL (11.5-15.4); Mean Corpuscular HGB Conc 31.6 g/dL (31.6-35.5); Mean Corpuscular Hemoglobin 30.5 pg (28.0-33.3); Mean Corpuscular Volume 96.5 fL (83.0-100.0); Mean Platelet Volume 9.8 fL (9.4-12.4); Platelet Count 376 K/mcL (140-400); Red Blood Count 3.41 M/mcL (3.82-4.97); Red Cell Distribution Width 13.7 % (11.5-14.5)
[2021-06-13 04:55] LABS: INR 1.1; Prothrombin Time 12.7 Seconds (9.4-12.1)
[2021-06-13 04:58] LABS: Activated Partial Thrombo Time 24.8 Seconds (26.0-36.0)
[2021-06-13 05:06] LABS: BUN/Creatinine Ratio 12 (6-26); Blood Urea Nitrogen 11 mg/dL (8-23); Calcium 9.1 mg/dL (8.6-10.3); Carbon Dioxide 23 mEq/L (23-29); Chloride 106 mEq/L (98-107); Glucose 128 mg/dL (70-105); Magnesium 2.1 mg/dL (1.6-2.6); Osmolality,Calculated 289 (280-300); Phosphorous 2.6 mg/dL (2.7-4.5); Potassium 3.2 mEq/L (3.5-5.1); Sodium 139 mEq/L (136-145); eGFR For African Americans > 60 (> 60); eGFR For Non-African Americans 58 (> 60)
[2021-06-13] MEDS: Ipratropium/Albuterol Neb 3 ML IH SCH ×6 (05:06→23:49)
[2021-06-13 05:09] LABS: % Iron Saturation 4 % (15-50); Iron 15 mcg/dL (50-170); Transferrin 245 mg/dL (203-362)
[2021-06-13 05:28] LABS: Ferritin 124 ng/mL (10-120)
[2021-06-13 05:34] LABS: Folate 8.1 ng/mL (3.0-16.0)
[2021-06-13 05:53] LABS: Adenovirus Not Detected (Not Detect); Bordetella Pertussis Not Detected (Not Detect); Chlamydophila pneumoniae Not Detected (Not Detect); Coronavirus 229E Not Detected (Not Detect); Coronavirus HKU1 Not Detected (Not Detect); Coronavirus NL63 Not Detected (Not Detect); Coronavirus OC43 Not Detected (Not Detect); Human Metapneumovirus Not Detected (Not Detect); Human Rhinovirus/Enterovirus Not Detected (Not Detect); Influenza A Subtype 2009 H1 Not Detected (Not Detect); Influenza B Not Detected (Not Detect); Mycoplasma pneumoniae Not Detected (Not Detect); Parainfluenza Virus 1 Not Detected (Not Detect); Parainfluenza Virus 2 Not Detected (Not Detect); Parainfluenza Virus 3 Not Detected (Not Detect); Parainfluenza Virus 4 Not Detected (Not Detect); Respiratory Syncytial Virus Not Detected (Not Detect); SARS-CoV-2 Not Detected (Not Detect)
[2021-06-13 06:19] LABS: Estimated Average Glucose 91 mg/dl; Hemoglobin A1C 4.8 %
[2021-06-13] MEDS: Budesonide/Formoterol 160/4.5 1 PUFF INH IH SCH ×2 (08:14→19:47)
[2021-06-13] MEDS: predniSONE 20 MG TABLET PO SCH (09:10)
[2021-06-13] MEDS: amLODIPine 5 MG TABLET PO SCH (09:11)
[2021-06-13] MEDS: BuPROPion XL (24 HR) 150 MG TABLET PO SCH (09:11)
[2021-06-13] MEDS: Sennosides/Docusate Sodium TABLET PO SCH ×2 (09:11→21:19)
[2021-06-13] MEDS: Lactobacillus 1 EACH CAP.SPRINK PO SCH ×2 (09:11→21:19)
[2021-06-13] MEDS: Azithromycin 250 MG TABLET PO SCH (09:11)
[2021-06-13] MEDS: Multivit/Ca/Min/Fe/FA 1 TAB TABLET PO SCH (09:11)
[2021-06-13] MEDS: Mirtazapine 15 MG TABLET PO SCH (09:11)
[2021-06-13] MEDS: Chlorhexidine Rinse 15 ML MOUTHWASH MM SCH ×2 (09:12→21:19)
[2021-06-13] MEDS: polyethylene glycoL 3350 17 GM POWD.PACK PO SCH (09:12)
[2021-06-14] MEDS: Chlorhexidine Rinse 15 ML MOUTHWASH MM SCH ×3 (00:01→20:34)
[2021-06-14] MEDS: Ipratropium/Albuterol Neb 3 ML IH SCH ×6 (03:37→23:33)
[2021-06-14] MEDS: *HR* Enoxaparin 40 MG/0.4 ML SYRINGE SQ SCH (05:35)
[2021-06-14] MEDS: Budesonide/Formoterol 160/4.5 1 PUFF INH IH SCH ×2 (07:48→19:48)
[2021-06-14] MEDS: BuPROPion XL (24 HR) 150 MG TABLET PO SCH (09:22)
[2021-06-14] MEDS: Mirtazapine 15 MG TABLET PO SCH (09:22)
[2021-06-14] MEDS: Lactobacillus 1 EACH CAP.SPRINK PO SCH ×2 (09:22→20:34)
[2021-06-14] MEDS: predniSONE 20 MG TABLET PO SCH (09:23)
[2021-06-14] MEDS: Azithromycin 250 MG TABLET PO SCH (09:23)
[2021-06-14] MEDS: amLODIPine 5 MG TABLET PO SCH (09:23)
[2021-06-14] MEDS: Sennosides/Docusate Sodium TABLET PO SCH ×2 (09:23→20:34)
[2021-06-14] MEDS: Multivit/Ca/Min/Fe/FA 1 TAB TABLET PO SCH (09:23)
[2021-06-14] MEDS: polyethylene glycoL 3350 17 GM POWD.PACK PO SCH (09:24)
[2021-06-14] MEDS: Potassium Chloride Elixir 20 MEQ/15 ML UDC PO SCH (09:24)
[2021-06-15 02:54] LABS: Basophils # 0.1 K/mcL (0.0-0.2); Basophils % 0.4 %; Hematocrit 29.9 % (35.3-44.9); Hemoglobin 9.4 g/dL (11.5-15.4); Immature Granulocytes % 2.3 % (0-4); Lymphocytes # 0.7 K/mcL (0.6-4.6); Mean Corpuscular HGB Conc 31.4 g/dL (31.6-35.5); Mean Corpuscular Hemoglobin 30.7 pg (28.0-33.3); Mean Corpuscular Volume 97.7 fL (83.0-100.0); Monocytes # 1.8 K/mcL (0.0-1.3); Monocytes % 7.6 %; Neutrophils # 19.9 K/mcL (1.6-8.9); Platelet Count 374 K/mcL (140-400); Red Blood Count 3.06 M/mcL (3.82-4.97); Red Cell Distribution Width 14.4 % (11.5-14.5); Segmented Neutrophils % 86.7 %
[2021-06-15 03:03] LABS: BUN/Creatinine Ratio 29 (6-26); Blood Urea Nitrogen 25 mg/dL (8-23); Calcium 9.6 mg/dL (8.6-10.3); Carbon Dioxide 23 mEq/L (23-29); Chloride 105 mEq/L (98-107); Glucose 108 mg/dL (70-105); Osmolality,Calculated 289 (280-300); Potassium 3.8 mEq/L (3.5-5.1); Sodium 137 mEq/L (136-145); eGFR For African Americans > 60 (> 60); eGFR For Non-African Americans > 60 (> 60)
[2021-06-15] MEDS: Ipratropium/Albuterol Neb 3 ML IH SCH ×6 (03:33→23:31)
[2021-06-15] MEDS: Acetaminophen 325 MG TABLET PO PRN ×2 (05:21→15:09)
[2021-06-15] MEDS: *HR* Enoxaparin 40 MG/0.4 ML SYRINGE SQ SCH (05:21)
[2021-06-15] MEDS: Budesonide/Formoterol 160/4.5 1 PUFF INH IH SCH ×2 (07:29→20:17)
[2021-06-15] MEDS ORDERED: Perflutren Lipid Microsphere 1.3 ML in 0.9 % Sodium Chloride 8.7 ML IVP PRN (07:59)
[2021-06-15] MEDS: Potassium Chloride Elixir 20 MEQ/15 ML UDC PO SCH (08:17)
[2021-06-15] MEDS: polyethylene glycoL 3350 17 GM POWD.PACK PO SCH (08:18)
[2021-06-15] MEDS: Multivit/Ca/Min/Fe/FA 1 TAB TABLET PO SCH (08:19)
[2021-06-15] MEDS: amLODIPine 5 MG TABLET PO SCH (08:19)
[2021-06-15] MEDS: Azithromycin 250 MG TABLET PO SCH (08:19)
[2021-06-15] MEDS: Lactobacillus 1 EACH CAP.SPRINK PO SCH ×2 (08:19→21:44)
[2021-06-15] MEDS: BuPROPion XL (24 HR) 150 MG TABLET PO SCH (08:19)
[2021-06-15] MEDS: Mirtazapine 15 MG TABLET PO SCH (08:19)
[2021-06-15] MEDS: Sennosides/Docusate Sodium TABLET PO SCH ×2 (08:19→21:44)
[2021-06-15] MEDS: predniSONE 20 MG TABLET PO SCH (08:19)
[2021-06-15] MEDS: Chlorhexidine Rinse 15 ML MOUTHWASH MM SCH ×2 (08:22→21:44)
[2021-06-15] MEDS: Furosemide 20 MG TABLET PO SCH (12:56)
[2021-06-16] MEDS: Ipratropium/Albuterol Neb 3 ML IH SCH ×6 (03:53→23:00)
[2021-06-16 04:08] LABS: Basophils # 0.1 K/mcL (0.0-0.2); Basophils % 0.5 %; Hematocrit 30.4 % (35.3-44.9); Hemoglobin 9.6 g/dL (11.5-15.4); Immature Granulocytes % 2.7 % (0-4); Lymphocytes # 0.6 K/mcL (0.6-4.6); Lymphocytes % 4.7 %; Mean Corpuscular HGB Conc 31.6 g/dL (31.6-35.5); Mean Corpuscular Hemoglobin 30.6 pg (28.0-33.3); Mean Corpuscular Volume 96.8 fL (83.0-100.0); Mean Platelet Volume 10.1 fL (9.4-12.4); Monocytes # 1.1 K/mcL (0.0-1.3); Monocytes % 8.3 %; Platelet Count 345 K/mcL (140-400); Red Blood Count 3.14 M/mcL (3.82-4.97); Red Cell Distribution Width 14.3 % (11.5-14.5); Segmented Neutrophils % 83.8 %; White Blood Count 13.1 K/mcL (4.3-11.1)
[2021-06-16 04:25] LABS: BUN/Creatinine Ratio 31 (6-26); Blood Urea Nitrogen 24 mg/dL (8-23); Calcium 9.1 mg/dL (8.6-10.3); Carbon Dioxide 29 mEq/L (23-29); Chloride 103 mEq/L (98-107); Glucose 100 mg/dL (70-105); Magnesium 2.1 mg/dL (1.6-2.6); Osmolality,Calculated 290 (280-300); Phosphorous 3.3 mg/dL (2.7-4.5); Potassium 4.4 mEq/L (3.5-5.1); Sodium 138 mEq/L (136-145); eGFR For African Americans > 60 (> 60); eGFR For Non-African Americans > 60 (> 60)
[2021-06-16] MEDS: *HR* Enoxaparin 40 MG/0.4 ML SYRINGE SQ SCH (06:31)
[2021-06-16] MEDS: *HR* HYDROcodone/Acet 5/325 mg TABLET PO PRN ×2 (06:37→18:10)
[2021-06-16] MEDS: Budesonide/Formoterol 160/4.5 1 PUFF INH IH SCH ×2 (07:25→20:23)
[2021-06-16] MEDS: Mirtazapine 15 MG TABLET PO SCH (09:34)
[2021-06-16] MEDS: Furosemide 20 MG TABLET PO SCH (09:34)
[2021-06-16] MEDS: amLODIPine 5 MG TABLET PO SCH (09:34)
[2021-06-16] MEDS: Lactobacillus 1 EACH CAP.SPRINK PO SCH ×2 (09:34→20:25)
[2021-06-16] MEDS: Multivit/Ca/Min/Fe/FA 1 TAB TABLET PO SCH (09:34)
[2021-06-16] MEDS: predniSONE 20 MG TABLET PO SCH (09:34)
[2021-06-16] MEDS: BuPROPion XL (24 HR) 150 MG TABLET PO SCH (09:34)
[2021-06-16] MEDS: Sennosides/Docusate Sodium TABLET PO SCH ×2 (09:35→20:25)
[2021-06-16] MEDS: Potassium Chloride Elixir 20 MEQ/15 ML UDC PO SCH (09:36)
[2021-06-16] MEDS: polyethylene glycoL 3350 17 GM POWD.PACK PO SCH (09:36)
[2021-06-16] MEDS: Chlorhexidine Rinse 15 ML MOUTHWASH MM SCH ×2 (09:38→20:25)
[2021-06-16] MEDS: Acetaminophen 325 MG TABLET PO PRN (16:58)
[2021-06-17] MEDS: Ipratropium/Albuterol Neb 3 ML IH SCH (03:44)
[2021-06-17] MEDS ORDERED: Ipratropium/Albuterol Neb 3 ML IH PRN (05:31)
[2021-06-17 05:37] LABS: Basophils # 0.1 K/mcL (0.0-0.2); Basophils % 0.4 %; Hematocrit 30.1 % (35.3-44.9); Hemoglobin 9.7 g/dL (11.5-15.4); Immature Granulocytes % 2.7 % (0-4); Lymphocytes % 7.9 %; Mean Corpuscular HGB Conc 32.2 g/dL (31.6-35.5); Mean Corpuscular Hemoglobin 31.1 pg (28.0-33.3); Mean Corpuscular Volume 96.5 fL (83.0-100.0); Mean Platelet Volume 9.8 fL (9.4-12.4); Monocytes # 1.2 K/mcL (0.0-1.3); Monocytes % 9.7 %; Neutrophils # 9.9 K/mcL (1.6-8.9); Platelet Count 338 K/mcL (140-400); Red Blood Count 3.12 M/mcL (3.82-4.97); Red Cell Distribution Width 14.4 % (11.5-14.5); Segmented Neutrophils % 79.3 %; White Blood Count 12.4 K/mcL (4.3-11.1)
[2021-06-17 05:59] LABS: BUN/Creatinine Ratio 34 (6-26); Blood Urea Nitrogen 26 mg/dL (8-23); Carbon Dioxide 30 mEq/L (23-29); Chloride 101 mEq/L (98-107); Glucose 87 mg/dL (70-105); Osmolality,Calculated 286 (280-300); Sodium 136 mEq/L (136-145); eGFR For African Americans > 60 (> 60); eGFR For Non-African Americans > 60 (> 60)
[2021-06-17] MEDS: *HR* Enoxaparin 40 MG/0.4 ML SYRINGE SQ SCH (06:16)
[2021-06-17] MEDS: Budesonide/Formoterol 160/4.5 1 PUFF INH IH SCH (07:40)
[2021-06-17] MEDS: Chlorhexidine Rinse 15 ML MOUTHWASH MM SCH (08:50)
[2021-06-17] MEDS: BuPROPion XL (24 HR) 150 MG TABLET PO SCH (08:50)
[2021-06-17] MEDS: Mirtazapine 15 MG TABLET PO SCH (08:50)
[2021-06-17] MEDS: Furosemide 20 MG TABLET PO SCH (08:50)
[2021-06-17] MEDS: predniSONE 20 MG TABLET PO SCH (08:50)
[2021-06-17] MEDS: Potassium Chloride Elixir 20 MEQ/15 ML UDC PO SCH (08:50)
[2021-06-17] MEDS: Lactobacillus 1 EACH CAP.SPRINK PO SCH (08:50)
[2021-06-17] MEDS: Sennosides/Docusate Sodium TABLET PO SCH (08:52)
[2021-06-17] MEDS: Multivit/Ca/Min/Fe/FA 1 TAB TABLET PO SCH (08:52)
[2021-06-17] MEDS: polyethylene glycoL 3350 17 GM POWD.PACK PO SCH (08:53)
[2021-06-17] MEDS: amLODIPine 5 MG TABLET PO SCH (09:00)
[2021-06-17] MEDS: *HR* HYDROcodone/Acet 5/325 mg TABLET PO PRN (13:28)
[2021-06-17 15:36] VITALS: BP 102/58; PULSE 88; TEMP 97.5; O2SAT 93
== END 2021-06-17 16:18 | disposition home health service (06) ==
LOC: EMEROOARM 17:06 → 3BNU 17:06 → SUATTDRO 22:34 → 3BNU 23:05
PROVIDERS: ADMIT Internal Medicine; ATTEND Internal Medicine